=== PATIENT | male | born 1940 | race Caucasian/White ===

== ENCOUNTER 2017-10-07 12:53 | Emergency (ER) | payer OTHER ==
[~2017-10-07] VITALS: Ht 172.7 cm; Wt 115.0 kg
[~2017-10-07 12:53] MED LIST: AVP150 PO; CMDUNK PO; FINA5TAB PO; HYDC25 PO; OXYSRUNK PO; PRAZ5CAP2 PO; PRCUNK PO
[2017-10-07 12:57] VITALS: TEMP 37.6; Ht 172.7 cm; Wt 115.0 kg
[2017-10-07] MEDS ORDERED: SODIUM CHLORIDE 0.9% 1000ML 1,000 ML IV STA (13:27)
[2017-10-07 13:49] LABS: MANUAL MICROSCOPIC REQUIRED? NO; REVIEW REQ? NO; URINE APPEARANCE CLEAR (CLEAR); URINE BILIRUBIN NEG (NEG); URINE COLOR DK YELLOW; URINE EPITHELIAL CELL AUTO 0-5 /lpf (0-5); URINE NITRITE NEG (NEG); URINE SPECIFIC GRAVITY 1.019 (1.000-1.030); UROBILINOGEN NEG (NEG); ZZUR CULT IF INDIC CLEAN CATCH NO
--- NOTE | 2017-10-07 13:49 | DIAGNOSTIC IMAGING REPORT ---
CHEST ONE VIEW PORTABLE CLINICAL HISTORY: 77 years-old Male presenting with fever. TECHNIQUE: Portable upright AP view of the chest was obtained. COMPARISON: 01/07/2009. FINDINGS: Atherosclerosis of the aortic arch. Cardiac silhouette normal in size. Apparent 13 mm nodule projects over the right lung base, which is in a more superior location than expected for a nipple shadow. No other focal infiltrate. No pleural effusion or pneumothorax. Degenerative changes of the thoracic spine. Upper abdomen normal. IMPRESSION: 1. Possible right pulmonary nodule versus nipple shadow. Either PA chest x-ray with nipple markers versus chest CT could be obtained if clinically indicated. 2. No other evidence of acute cardiopulmonary disease. Electronically signed by: Blu Alba M.D. 10/07/2017 1:48 PM Dictated Date/Time: 10/07/2017 1:46 PM
[2017-10-07 14:02] LABS: BASO % 0.1 %; BASO ABS # 0.01 K/uL (0-0.2); COMPLETE YES; EOS % 0.1 %; HEMATOCRIT 39.3 % (42-52); IG% 1.4 %; LYMPH % 7.5 %; LYMPH ABS # 0.53 K/uL (1.2-3.4); MEAN CELL VOLUME 85.1 fL (80-100); MEAN CORPUSCULAR HEMOGLOBIN 28.6 pg (25-34); MEAN CORPUSCULAR HGB CONC 33.6 g/dl (32-36); MEAN PLATELET VOLUME 9.6 fL (7.4-10.4); MONO % 8.3 %; NEUT % 82.6 %; PLATELET COUNT 171 K/uL (130-400); RED BLOOD COUNT 4.62 M/uL (4.7-6.1); WHITE BLOOD COUNT 7.03 K/uL (4.8-10.8)
[2017-10-07 14:10] LABS: INR 1.1 (0.9-1.1)
[2017-10-07 14:19] LABS: ISTAT CREATININE 1.4 mg/dl (0.6-1.3); ISTAT HEMOGLOBIN 13.9 g/dl (14.0-18.0); ISTAT IONIZED CALCIUM 1.12 mmol/l (1.12-1.32)
[2017-10-07 14:20] LABS: ALT/SGPT 88 U/L (12-78); AST/SGOT 34 U/L (15-37); BLOOD UREA NITROGEN 22 mg/dl (7-18); BUN/CREATININE RATIO 15.3 (10-20); CALCIUM 8.4 mg/dl (8.5-10.1); CARBON DIOXIDE 26 mmol/L (21-32); CHLORIDE 102 mmol/L (98-107); CREATININE 1.44 mg/dl (0.60-1.40); GLUCOSE 144 mg/dl (70-99); POTASSIUM 3.7 mmol/L (3.5-5.1); SODIUM 138 mmol/L (136-145)
[2017-10-07 14:24] LABS: ALKALINE PHOSPHATASE 59 U/L (45-117)
[2017-10-07] MEDS ORDERED: LUTE15CA PO (14:24)
[2017-10-07] MEDS ORDERED: NXM/40 PO (14:24)
[2017-10-07] MEDS ORDERED: HYDR12.55 PO (14:24)
[2017-10-07] MEDS ORDERED: B-CO1TAB53 PO (14:24)
[2017-10-07] MEDS ORDERED: ASPI81TA28 PO (14:24)
[2017-10-07] MEDS ORDERED: SODIUM CHLORIDE 0.9% 500ML 500 ML IV STA (15:13)
[2017-10-07 15:29] LABS: LYME DISEASE AB IGG NEG (NEG); LYME DISEASE AB IGM NEG (NEG)
[2017-10-07] MEDS ORDERED: KETOROLAC TROMETHAMINE 30 MG/ML VIAL IV STA (16:06)
[2017-10-07 16:20] VITALS: BP 126/67; PULSE 69; O2SAT 95
--- NOTE | 2017-10-07 17:17 | EMERGENCY ROOM VISIT NOTE ---
History Report prepared by Oskar: Kati Crook Under the Supervision of: Dr. Kali Ivey D.O. First contact with patient: 13:00 Chief Complaint: FEVER Stated Complaint: FEVER, ACHES History of Present Illness The patient is a 77 year old male who presents to the Emergency Room with complaints of a constant fever beginning yesterday. He has been feeling hot and cold. He also reports generalized pain and joint pain. He rates his current pain as a 4/10 in severity. The patient states that he has had similar symptoms 3 times in the past 3 weeks. Each episode lasts for a little over a day and then resolves. He has not checked his temperature today but reports that previously it was 100.7. The patient reports that he has been incontinent of urine and has had increased urinary over the past few days. He has a history of UTIs but states that it has been a long time since he had one. Pt denies change in vision, rhinorrhea, cough, chest pain, shortness of breath, abdominal pain, back pain, nausea, vomiting, diarrhea, dysuria, and melena. He denies any open sores or wounds. He had a tick bite about 1 month ago and denies any personal history of Lyme disease. Source of History: patient Onset: yesterday Position: head (fever) Symptom Intensity: 4/10 Timing: constant Associated Symptoms: + urinary symptoms (Pt notes incontinence and increased frequency), No cough, No chest pain, No SOB, No nausea, No vomiting, No abdominal pain, No back pain, No melena, No diarrhea Note: Pt c/o generalized pain. Pt denies change in vision, rhinorrhea, and dysuria. He denies any open sores or wounds. Review of Systems See HPI for pertinent positives & negatives. A total of 10 systems reviewed and were otherwise negative. Past Medical & Surgical Medical Problems: (1) Cataract (2) Esophageal reflux (3) Hypertension Family History Non-pertinent due to advanced age. Social History Marital Status: Housing Status: lives with significant other Occupation Status: retired Current/Historical Medications Scheduled Aspirin (Aspirin Ec), 81 MG PO QAM B-Complex W/Biotin & Folic Aci (Super B-Complex), 1 TAB PO QAM Esomeprazole Magnesium (Nexium), 40 MG PO QAM Finasteride (Proscar), 5 MG PO DAILY Hydrochlorothiazide (Hydrochlorothiazide), 12.5 MG PO QAM Lutein-Zeaxanthin (Lutein), 1 CAP PO QAM Allergies Coded Allergies: Vancomycin (Verified Allergy, Unknown, ., 10/07/17) LENO Inhibitors (Verified Adverse Reaction, Severe, COUGHING, 10/07/17) Acetaminophen (Verified Adverse Reaction, Intermediate, HALLUCINATIONS, ) Codeine (Verified Adverse Reaction, Intermediate, HALLUCINATIONS, 10/07/17 ) Oxycodone (Verified Adverse Reaction, Intermediate, HALLUCINATIONS, ) Physical Exam Vital Signs Date Time Temp Pulse Resp B/P (MAP) Pulse Ox O2 Delivery O2 Flow Rate FiO2 10/07/17 16:20 69 20 126/67 95 10/07/17 14:56 91 18 109/69 98 Room Air 10/07/17 12:57 37.6 85 18 119/68 95 Room Air Physical Exam GENERAL: Sitting up in bed, disheveled, alert, well appearing, well nourished, no distress, non-toxic EYE EXAM: normal conjunctiva. OROPHARYNX: no exudate, no erythema, lips, buccal mucosa, and tongue normal and mucous membranes are moist NECK: supple, no nuchal rigidity, no adenopathy, non-tender LUNGS: Clear to auscultation. Normal chest wall mechanics HEART: no murmurs, S1 normal and S2 normal ABDOMEN: Old abdominal incision present, abdomen soft, non-tender, normo-active bowel sounds, no masses, no rebound or guarding. BACK: Back is symmetrical on inspection and there is no deformity, no midline tenderness, no CVA tenderness. SKIN: no rashes and no bruising UPPER EXTREMITIES: upper extremities are grossly normal. LOWER EXTREMITIES: No pitting edema. NEURO EXAM: Normal sensorium, cranial nerves II-XII grossly intact, normal speech, no gross weakness of arms, no gross weakness of legs. Ambulates without difficulty. Medical Decision & Procedures ER Provider Diagnostic Interpretation: Radiology results as stated below per my review and the radiologist's interpretation: CHEST ONE VIEW PORTABLE CLINICAL HISTORY: 77 years-old Male presenting with fever. TECHNIQUE: Portable upright AP view of the chest was obtained. COMPARISON: 01/07/2009. FINDINGS: Atherosclerosis of the aortic arch. Cardiac silhouette normal in size. Apparent 13 mm nodule projects over the right lung base, which is in a more superior location than expected for a nipple shadow. No other focal infiltrate. No pleural effusion or pneumothorax. Degenerative changes of the thoracic spine. Upper abdomen normal. IMPRESSION: 1. Possible right pulmonary nodule versus nipple shadow. Either PA chest x-ray with nipple markers versus chest CT could be obtained if clinically indicated. 2. No other evidence of acute cardiopulmonary disease. Electronically signed by: Blu Alba M.D. 10/07/2017 1:48 PM Dictated Date/Time: 10/07/2017 1:46 PM Laboratory Results 10/07/17 13:35 Red Blood Count 4.62, Mean Corpuscular Volume 85.1, Mean Corpuscular Hemoglobin 28.6, Mean Corpuscular Hemoglobin Concent 33.6, Mean Platelet Volume 9.6, Neutrophils (%) (Auto) 82.6, Lymphocytes (%) (Auto) 7.5, Monocytes (%) (Auto) 8.3, Eosinophils (%) (Auto) 0.1, Basophils (%) (Auto) 0.1, Neutrophils # (Auto) 5.80, Lymphocytes # (Auto) 0.53, Monocytes # (Auto) 0.58, Eosinophils # (Auto) 0.01, Basophils # (Auto) 0.01 10/07/17 13:35 Test 10/07/17 13:05 10/07/17 13:35 10/07/17 13:48 10/07/17 14:04 Urine Color DK YELLOW Urine Appearance CLEAR (CLEAR) Urine pH 5.0 (4.5-7.5) Urine Specific [place] 1.019 (1.000-1.030) Urine Protein NEG (NEG) Urine Glucose (UA) NEG (NEG) Urine Ketones NEG (NEG) Urine Occult Blood NEG (NEG) Urine Nitrite NEG (NEG) Urine Bilirubin NEG (NEG) Urine Urobilinogen NEG (NEG) Urine Leukocyte Esterase NEG (NEG) Urine WBC (Auto) 0 /hpf (0-5) Urine RBC (Auto) 0-4 /hpf (0-4) Urine Hyaline Casts (Auto) 1-5 /lpf (0-5) Urine Epithelial Cells (Auto) 0-5 /lpf (0-5) Urine Bacteria (Auto) NEG (NEG) White Blood Count 7.03 K/uL (4.8-10.8) Red Blood Count 4.62 M/uL (4.7-6.1) Hemoglobin 13.2 g/dL (14.0-18.0) Hematocrit 39.3 % (42-52) Mean Corpuscular Volume 85.1 fL (80-100) Mean Corpuscular Hemoglobin 28.6 pg (25-34) Mean Corpuscular Hemoglobin Concent 33.6 g/dl (32-36) Platelet Count 171 K/uL (130-400) Mean Platelet Volume 9.6 fL (7.4-10.4) Neutrophils (%) (Auto) 82.6 % Lymphocytes (%) (Auto) 7.5 % Monocytes (%) (Auto) 8.3 % Eosinophils (%) (Auto) 0.1 % Basophils (%) (Auto) 0.1 % Neutrophils # (Auto) 5.80 K/uL (1.4-6.5) Lymphocytes # (Auto) 0.53 K/uL (1.2-3.4) Monocytes # (Auto) 0.58 K/uL (0.11-0.59) Eosinophils # (Auto) 0.01 K/uL (0-0.5) Basophils # (Auto) 0.01 K/uL (0-0.2) RDW Standard Deviation 42.9 fL (36.4-46.3) RDW Coefficient of Variation 13.9 % (11.5-14.5) Immature Granulocyte % (Auto) 1.4 % Immature Granulocyte # (Auto) 0.10 K/uL (0.00-0.02) Prothrombin Time 12.0 SECONDS (9.0-12.0) Prothromb Time International Ratio 1.1 (0.9-1.1) Est Creatinine Clear Calc Drug Dose 52.9 ml/min Estimated GFR () 53.9 Estimated GFR (Non- 46.5 BUN/Creatinine Ratio 15.3 (10-20) Calcium Level 8.4 mg/dl (8.5-10.1) Total Bilirubin 1.7 mg/dl (0.2-1) Direct Bilirubin 0.4 mg/dl (0-0.2) Aspartate Amino Transf (AST/SGOT) 34 U/L (15-37) Alanine Aminotransferase (ALT/SGPT) 88 U/L (12-78) Alkaline Phosphatase 59 U/L (45-117) Total Creatine Kinase 37 U/L (39-308) Troponin I < 0.015 ng/ml (0-0.045) Total Protein 6.6 gm/dl (6.4-8.2) Albumin 3.2 gm/dl (3.4-5.0) Lyme Disease IgG Antibody NEG (NEG) Lyme Disease IgM Antibody NEG (NEG) Bedside Lactic Acid Venous 2.19 mmol/L (0.90-1.70) Bedside Hemoglobin 13.9 g/dl (14.0-18.0) Bedside Hematocrit 41 % (42-52) Bedside Sodium 139 mEq/L (135-144) Bedside Potassium 3.7 mEq/L (3.3-5.0) Bedside Chloride 98 mEq/L (101-112) Bedside Total CO2 26 mEq/l (24-31) Anion Gap 20.0 mmol/L (16-25) Bedside Blood Urea Nitrogen 22 mg/dl (7-18) Bedside Creatinine 1.4 mg/dl (0.6-1.3) Bedside Glucose (other) 144 mg/dl (70-99) Bedside Ionized Calcium (Anayeli) 1.12 mmol/l (1.12-1.32) Test 10/07/17 14:50 10/07/17 15:29 Influenza Type A Antigen Neg for Influ A (NEG) Influenza Type B Antigen Neg for Influ B (NEG) Laboratory results per my review. Medications Administered Medications (Trade) Dose Ordered Sig/Elijah Route Start Time Stop Time Status Last Admin Dose Admin Sodium Chloride 1,000 ml @ 999 mls/hr Q1H1M STAT IV 10/07/17 13:27 10/07/17 14:27 DC 10/07/17 13:27 999 MLS/HR Sodium Chloride 500 ml @ 999 mls/hr Q31M STAT IV 10/07/17 15:13 10/07/17 15:43 DC 10/07/17 15:13 999 MLS/HR Ketorolac Tromethamine (Toradol Inj) 15 mg NOW STAT IV 10/07/17 16:06 10/07/17 16:07 DC 10/07/17 16:12 15 MG ECG Indication: other Rate (beats per minute): 82 Rhythm: normal sinus Findings: no ectopy, other (normal axis) ED Course ED COURSE: Vital signs were reviewed and showed normal vitals. The patients medical record was reviewed The above diagnostic studies were performed and reviewed. ED treatments and interventions as stated above. 1300: The patient was evaluated in room B4B. A complete history and physical examination was performed. 1327: NSS 1000 ml @ 999 mls/hr IV 1404: Upon reevaluation the patient is doing well. 1446: I updated the patient on his results. 1513: NSS 500 ml @ 999 mls/hr IV 1525: The patient is resting comfortably. 1607: Upon reevaluation, the patient is feeling better. He is refusing repeat blood work. I discussed my findings with the patient and he understands and agrees with the treatment plan. Case management will set up a follow-up appointment with the patient's PCP. Based on the patients age, coexisting illnesses, exam and lab findings the decision to treat as an outpatient was made. The patient remained stable while under my care. The patient appeared well at the time of discharge. 1606: Toradol 15 mg IV Medical Decision Differential Diagnosis includes but is not limited to dehydration, stroke, anemia, hypoglycemia, hyponatremia, hypernatremia, urinary tract infection, pneumonia, bronchitis, sepsis, gastroenteritis, additional abdominal pathology, metabolic abnormalities and infections. Patient is a 77-year-old male who presents to ER for not feeling well which started last night. He does admit to chills and diffuse myalgias. No recorded fevers. CBC shows no significant leukocytosis. BMP was unremarkable. Glucose was slightly elevated. Lactate was 2.1. T bili was slightly elevated at 1.7. No previous to compare to. No abdominal pain. Troponin was negative. Recommended repeating lactate the patient declined. Influenza was negative. Lyme was negative. Chest x-ray unremarkable. UA shows no signs of infection. Patient was given 1.5 L normal saline. He was also given Toradol. He did feel better. His updated at bedside. Vitals were stable and unremarkable. He was discharged follow-up with his PCP. Set up an appointment tomorrow for him at midday. Discussed with Pt concerning signs and symptoms to watch out for. Pt was instructed to follow up with their PCP and discussed with the patient their option to return to the ED at anytime for persistent or worsening symptoms. The appropriate anticipatory guidance and out-patient management, including indications for return to the emergency department, were explained at length to the patient and understood. Medication Reconcilliation Current Medication List: was personally reviewed by me Blood Pressure Screening Patient's blood pressure: Normal blood pressure Impression Primary Impression: Myalgia Additional Impression: Weak Scribe Attestation The scribe's documentation has been prepared under my direction and personally reviewed by me in its entirety. I confirm that the note above accurately reflects all work, treatment, procedures, and medical decision making performed by me. Departure Information Dispostion Home / Self-Care Referrals Ange Acosta M.D. (PCP) Forms HOME CARE DOCUMENTATION FORM, IMPORTANT VISIT INFORMATION Patient Instructions My [facility] Additional Instructions Please follow up with your primary care doctor with in the next 24 hours. Any worsening of your symptoms, please return to the ED immediately. This includes any fevers greater than 100.4, worsening pain, chest pain, shortness breath, persistent nausea, vomiting, unable to eat or drink, or any other concerning signs or symptoms from your standpoint. Please take Motrin or ibuprofen as needed for pain. Problem Qualifiers
== END 2017-10-07 16:21 | disposition home or self-care (01) ==
LOC: C.EDB 12:54
DX: M79.1 Myalgia (principal); R53.1 Weakness; Z87.440 Personal history of urinary (tract) infections; K21.9 Gastro-esophageal reflux disease without esophagitis; I10 Essential (primary) hypertension; H26.9 Unspecified cataract; Z79.82 Long term (current) use of aspirin; Z79.899 Other long term (current) drug therapy

== ENCOUNTER 2020-08-01 11:15 | Inpatient (IN) ==
--- OUTSIDE RECORDS SUMMARY | 2020-08-01 11:17 | External Medical Summary | Continuity of Care Document ---
:1940 Author Name Anca García Address Unavailable Unavailable , Care Team Providers Name Role Phone Corazon García Unavailable [email or web address] Active medical history not documented Allergies and Adverse Reactions Allergy history not documented Medications Medications not documented Procedures Procedures not documented Immunizations Immunizations not documented Plan of Treatment Planned Observations Planned Goals not documented Results No Known Results Results not documented
--- OUTSIDE RECORDS SUMMARY | 2020-08-01 11:18 | External Medical Summary | Continuity of Care Document ---
:1940 Author Name Anca García Address Unavailable Unavailable , Care Team Providers Name Role Phone Corazon García Unavailable [email or web address] Active medical history not documented Allergies and Adverse Reactions Allergy history not documented Medications Medications not documented Procedures Procedures not documented Immunizations Immunizations not documented Plan of Treatment Planned Observations Planned Goals not documented Results No Known Results Results not documented
[2020-08-01] MEDS ORDERED: SODIUM CHLORIDE 0.9% 1000ML 500 ML IV ONE ×2 (11:53→13:14)
[2020-08-01 12:26] LABS: Basophils # (auto) 0.02 K/uL (0-0.2); Basophils % (auto) 0.2 %; Eosinophils # (auto) 0.17 K/uL (0-0.5); Eosinophils % (auto) 2.1 %; Hematocrit (blood only) 42.4 % (42-52); Hemoglobin 14.3 g/dL (14.0-18.0); Immature Granulocytes # (auto) 0.02 K/uL (0.00-0.02); Immature Granulocytes % (auto) 0.2 %; Lymphocytes % (auto) 18.7 %; Mean Corpuscular Hemoglobin 28.8 pg (25-34); Mean Corpuscular Hgb Conc 33.7 g/dL (32-36); Mean Corpuscular Volume 85.3 fL (80-100); Mean Platelet Volume 10.4 fL (7.4-10.4); Monocytes # (auto) 0.58 K/uL (0.11-0.59); Monocytes % (auto) 7.2 %; Neutrophils # (auto) 5.72 K/uL (1.4-6.5); Neutrophils % (auto) 71.6 %; Platelet Count 155 K/uL (130-400); RDW Coefficient of Variation 13.6 % (11.5-14.5); RDW Standard Deviation 42.6 fL (36.4-46.3); Red Blood Count 4.97 M/uL (4.7-6.1); White Blood Count 8.01 K/uL (4.8-10.8)
[2020-08-01 12:37] LABS: Partial Thromboplastin Ratio 0.9; Partial Thromboplastin Time 25.6 Seconds (21.0-31.0)
[2020-08-01 12:41] LABS: Alanine Aminotransferase 46 U/L (12-78); Albumin Level 3.4 gm/dl (3.4-5.0); Aspartate Aminotransferase 20 U/L (15-37); BUN Creatinine Ratio 18.7 (10-20); Blood Urea Nitrogen 26 mg/dl (7-18); Calcium 8.7 mg/dl (8.5-10.1); Carbon Dioxide 27 mmol/L (21-32); Chloride 107 mmol/L (98-107); Creatinine Clr Calc Pharmacy 51.7 ml/min; Est GFR (African American) 54.5; Glucose 123 mg/dl (70-99); Lipase 119 U/L (73-393); Potassium 3.8 mmol/L (3.5-5.1); Sodium 142 mmol/L (136-145)
--- NOTE | 2020-08-01 12:43 | XRay Report ---
SINGLE VIEW CHEST CLINICAL HISTORY: Atypical chest pain. FINDINGS: 2 AP, portable, upright chest radiographs are compared to study dated 10/07/2017 and correl ated with chest CT dated 07/15/2008. The examination is degraded by portable technique and patient rota tion. The heart is top normal for projection noting mild atherosclerotic calcification of the thoraci c aorta. A 10 mm pulmonary nodule in the right lower lobe is unchanged. There is no airspace consolid ation or large pleural effusion. Atelectasis is noted at the left lung base. No pneumothorax is seen. The bony thorax is grossly intact. IMPRESSION: 1. No acute cardiopulmonary abnormality. 2. A 10 mm right lower lobe pulmonary nodule is similar in appearance to previous.. ACT 112: Negative or not required by law. Electronically signed by: Gonzalez Logan M.D. 08/01/2020 12:42 PM
[2020-08-01 12:46] LABS: Albumin Globulin Ratio 0.9 (0.9-2); Alkaline Phosphatase 50 U/L (45-117); Bilirubin,Total 1.3 mg/dl (0.2-1); Globulin 3.6 gm/dl (2.5-4.0); Troponin I < 0.015 ng/ml (0-0.045)
[2020-08-01] MEDS ORDERED: OPTIRAY 320 125ml IV ONE (13:22)
--- NOTE | 2020-08-01 13:43 | CT Scan Report ---
CT head/brain wo con CLINICAL HISTORY: Stroke evaluation DIZZINESS, LIGHTHEADEDNESS. COMPARISON STUDY: None TECHNIQUE: Axial CT of the brain is performed from the vertex to the skull base. IV contrast was not administered for this examination. A dose lowering technique was utilized adhering to the principles of ALARA. CT DOSE: FINDINGS: No intra or extra-axial mass lesions are visualized. There is no CT evidence of acute cortical infarc tion. There is no evidence of midline shift. There is no acute hemorrhage. No calvarial fractures ar e visualized. There are minimal white matter hypodensities likely on a small vessel basis. There is no evidence of pathologic ventricular dilatation. There is no evidence of acute sinusitis IMPRESSION: No acute intracranial findings ACT 112: Negative or not required by law. Electronically signed by: Deep Contreras M.D. 08/01/2020 1:42 PM
--- NOTE | 2020-08-01 13:45 | CT Scan Report ---
CT angio neck with con CLINICAL HISTORY: Stroke evaluation LIGHTHEADEDNESS, DIZZINESS. COMPARISON STUDY: No previous studies for comparison. TECHNIQUE: CT angiography was performed from the aortic arch to the skull base. MIP imaging was perfo rmed. The patient was scanned in a dynamic helical fashion during intravenous administration of 120 c c of Optiray 320. A dose lowering technique was utilized adhering to the principles of ALARA. CT DOSE: Technique: CT angiogram of the carotid and vertebral arteries was obtained using intravenous contrast and 3-D reconstruction. NASCET criteria was utilized. Findings: The right carotid revealed no evidence of aneurysm and no evidence of dissection. There is no evidenc e of hemodynamic significant stenosis. There is calcific plaque at the level the left carotid bulb. There is no evidence of hemodynamically significant carotid stenosis. There is no evidence of hemodynamically significant vertebral stenosis. There is no evidence of verte bral dissection. IMPRESSION: No evidence of hemodynamically significant carotid or vertebral artery stenosis. No evidence of disse ction. ACT 112: Negative or not required by law. Electronically signed by: Deep Contreras M.D. 08/01/2020 1:44 PM
--- NOTE | 2020-08-01 14:02 | CT Scan Report ---
HEAD CTA HISTORY: Dizziness. Stroke evaluation TECHNIQUE: Multiaxial CT images of the head were performed following the intravenous administration o f contrast to evaluate the major cerebral vessels. Maximum intensity projection images were also obta ined. A dose lowering technique was utilized adhering to the principles of ALARA. COMPARISON: None. FINDINGS: There is no mass, hematoma, midline shift, or acute infarct. Visualized intracranial manager intern al carotid arteries, distal vertebral arteries, and basilar artery are widely patent. There is no sig nificant stenosis, occlusion, or aneurysm seen within the bilateral ACAs, MCAs, or storekeeper helper. The major du ral venous sinuses are widely patent. IMPRESSION: No significant stenosis, occlusion, or aneurysm within the teller of Estevez. ACT 112: Negative or not required by law. Electronically signed by: Tl Deluna M.D. 08/01/2020 2:00 PM
--- NOTE | 2020-08-01 14:25 | History & Physical Report ---
Date of Service August 01, 2020 Assessment & Plan (1) Visual changes: (2) Stroke-like symptoms: This is a 79yo M with a PMH of HTN, BPH, CKD III and other medical problems listed below who presents with visual changes and lightheadedness x 4 days. -Has been experiencing vertigo, lightheadedness, left peripheral visual field changes over the past few days as well as chest tightness and presyncope -Ddx: TIA/CVA vs BPPV vs orthostatic hypotension vs cardiac arrhythmia -No focal neurological deficits or lab abnormalities. EKG with sinus bradycardia at 49 bpm -CT head without acute changes, CTA head and neck without significant stenosis, occlusion, or aneurysm within the [place]. No evidence of carotid or vertebral artery stenosis, no evidence of dissection -Pending studies: MRI brain with/without contrast for further evaluation of vertigo and left visual changes as well as 2D echo with bubble study -Orthostatic vitals, continue aspirin, neuro checks, PT, OT, speech therapy evaluations. Consult neurology (3) History of paroxysmal supraventricular tachycardia: (4) Sinus bradycardia: EKG with sinus bradycardia at 49. Chart review of clinic vital signs show this is a chronic issue -In setting of acute fatigue, intermittent chest tightness, a few episodes of presyncope and lightheadedness -Was seen by Dr. Rangel in May 2020 for findings of asymptomatic paroxysmal supraventricular tachycardia with monitor revealing 57 episodes. Not placed on beta stephanie due to chronic sinus bradycardia -Monitor on telemetry, trend troponin, obtaining 2D echo, cardiology consult (5) Chest tightness: Intermittent episodes of chest tightness over the past 4 days, did not seem to correlate with lightheadedness or presyncope -Initial EKG without any acute ischemic changes. Repeat EKG pending now. Initial troponin negative. Continue trending troponin (6) CKD (chronic kidney disease), stage III: At baseline with creatinine ~1.4. Monitor with daily BMP (7) Hypertension: BP 139/65. Orthostatic vitals pending. Plan to continue losartan and hctz (8) BPH (benign prostatic hyperplasia): Current home regimen includes finasteride and doxazosin. Concerned medication contributing to orthostasis DVT Ppx: SQ heparin Code status: FULL PCP: Johntersagrario Dispo: Admitted to [facility]. Discharge planning ordered. Patient seen in collaboration with Dr. Hazel. Please see addendum. History of Present Illness Chief Complaint: visual changes, lightheadedness Primary Care Provider: Walter Arizmendi MD This is a 79yo M with a PMH of HTN, BPH, CKD III and other medical problems listed below who presents with visual changes and lightheadedness x 4 days. Patient leaned over during the weekend and had sudden onset episode of the room spinning. Continue to feel fatigued with lightheadedness and presyncope that day, but vertigo did not return. Also endorsing intermittent chest tightness but did not seem to correlate with presyncopal episode. The next day, patient had visual changes in peripheral field of left eye that resolved later that day and have not returned. Continues to feel fatigued, lightheaded, with intermittent episodes of presyncope. Does not seem to be correlated with exertion but most episodes occur with some type of positional change. Also endorsing chest tightness spreading across chest that is nonradiating and nonexertional. Associated with mild shortness of breath but no nausea or vomiting. No weakness of extremities or difficulty with ambulation. No palpitations noted. Patient denies any personal history of heart disease or stroke. No history of migraine headache or vertigo in the past. states that patient has been working on a extensive [place] project since April and usually works for the entire day without issue. Has noticed a significant decline in energy level over the past 4 days. Patient is taking doxazosin and finasteride for BPH as well as hydrochlorothiazide and losartan for blood pressure. Denies any fever, chills, headache, cough, palpitations, wheezing, nausea, vomiting, abdominal pain, dysuria, diarrhea or constipation. Allergies Allergy/AdvReac Type Severity Reaction Status Date / Time vancomycin Allergy Severe Hives Verified 08/01/20 15:11 LENO Inhibitors AdvReac Severe COUGHING Verified 08/01/20 15:11 acetaminophen AdvReac Intermediate HALLUCINATI Verified 08/01/20 15:11 ONS codeine AdvReac Intermediate HALLUCINATI Verified 08/01/20 15:11 ONS oxycodone AdvReac Intermediate HALLUCINATI Verified 08/01/20 15:11 ONS tolterodine [From Detrol] AdvReac constipation, Verified 08/01/20 15:13 blurred vision, urinary retention Home Medications Home Medications Medication Instructions Recorded Confirmed Type aspirin [Aspir-81] 81 mg PO DAILY 08/01/20 08/01/20 History cyanocobalamin (vitamin B-12) 1,000 mcg PO DAILY 08/01/20 08/01/20 History doxazosin [Cardura] 8 mg PO DAILY 08/01/20 08/01/20 History finasteride 5 mg PO DAILY 08/01/20 08/01/20 History fluticasone propionate [Flonase 2 spray INTRANASAL DAILY 08/01/20 08/01/20 History Allergy Relief] hydrochlorothiazide 25 mg PO DAILY 08/01/20 08/01/20 History losartan [Cozaar] 100 mg PO DAILY 08/01/20 08/01/20 History metronidazole 1 applic TOPICAL DAILY PRN 08/01/20 08/01/20 History Past Med/Surg History Medical History (Updated 08/01/20 @ 16:18 by Ramón Mcdonald MD) BPH (benign prostatic hyperplasia) Cataract CKD (chronic kidney disease), stage III Esophageal reflux History of paroxysmal supraventricular tachycardia Hypertension Surgical History History of cholecystectomy Family History Other Diabetes Heart disease Social History Smoking Status: Former smoker Hx Alcohol Use: Yes Alcohol type: beer Hx Substance Use: No Preferred Language: Persian Communication Ability: Effective Instructional Writer Required: No Beliefs That Will Affect Care: None Current Living Situation: Spouse Other Information That Helps Us Care for You: No Feels Safe at Home: Yes Safety Concerns: Feels Safe At This Time Assistive Devices: Denture - Upper Review of Systems Review of Systems: At least ten systems reviewed and negative except as noted in the HPI. Physical Exam Physical Exam: General Appearance: WD/WN, vitals as above, NAD, sitting up in bed, pleasant, conversing easily Head: normocephalic, atraumatic Eyes: normal inspection, PERRL, conjunctivae normal, anicteric sclerae, no nystagmus ENT: external ear and nose normal, oropharynx normal Neck: normal visual inspection, trachea midline, no thyromegaly Respiratory: normal respiratory effort, lungs clear to auscultation, no wheeze, rales, rhonchi. No accessory muscle use Cardiovascular: bradycardic rate, regular rhythm, no murmur appreciated, normal peripheral pulses, no BLE edema. Vessels: no JVD Chest: normal inspection of chest Abdomen/GI: normal bowel sounds, soft, nontender, no hepatosplenomegaly Extremities/Musculoskeletal: no cyanosis or clubbing, extremities motor strength 5/5 Neurologic: PERRL, EOMI, accommodation nl, no face palsy, no dysarthria, CN's II-XI intact bilaterally and moves all extremities Psychiatric: A+Ox3, euthymic affect Skin: no rashes, normal color, warm/dry Results & Data Results & Data ([facility]) Vital Signs (Past 12 Hours) Vital Signs Temp Pulse Resp BP Pulse Ox 08/01/20 13:50 44 L 18 139/65 08/01/20 11:18 36.6 C 51 L 18 131/72 95 Laboratory Results Short CBC 08/01/20 08/01/20 08/01/20 Range/Units 12:10 12:10 12:10 WBC 8.01 (4.8-10.8) K/uL RBC 4.97 (4.7-6.1) M/uL Hgb 14.3 (14.0-18.0) g/dL Hct 42.4 (42-52) % MCV 85.3 (80-100) fL MCH 28.8 (25-34) pg MCHC 33.7 (32-36) g/dL RDW Std Deviation 42.6 (36.4-46.3) fL RDW Coeff of Matheus 13.6 (11.5-14.5) % Plt Count 155 (130-400) K/uL MPV 10.4 (7.4-10.4) fL Immature Gran % (Auto) 0.2 % Neut % (Auto) 71.6 % Lymph % (Auto) 18.7 % [place] % (Auto) 7.2 % Eos % (Auto) 2.1 % Baso % (Auto) 0.2 % Neut # (Auto) 5.72 (1.4-6.5) K/uL Lymph # (Auto) 1.50 (1.2-3.4) K/uL [place] # (Auto) 0.58 (0.11-0.59) K/uL Eos # (Auto) 0.17 (0-0.5) K/uL Baso # (Auto) 0.02 (0-0.2) K/uL Immature Gran # (Auto) 0.02 (0.00-0.02) K/uL PT 11.0 (9.0-12.0) Seconds INR 1.0 (0.9-1.1) APTT 25.6 (21.0-31.0) Seconds PTT Ratio 0.9 Sodium 142 (136-145) mmol/L Potassium 3.8 (3.5-5.1) mmol/L Chloride 107 (98-107) mmol/L Carbon Dioxide 27 (21-32) mmol/L Anion Gap 9.0 (3-11) BUN 26 H (7-18) mg/dl Creatinine 1.41 H (0.6-1.4) mg/dl Est Cr Clr Drug Dosing 51.7 ml/min Est GFR ( Amer) 54.5 Est GFR (Non-Af Amer) 47.0 BUN/Creatinine Ratio 18.7 (10-20) Glucose 123 H (70-99) mg/dl Calcium 8.7 (8.5-10.1) mg/dl Total Bilirubin 1.3 H (0.2-1) mg/dl AST 20 (15-37) U/L ALT 46 (12-78) U/L Alkaline Phosphatase 50 (45-117) U/L Troponin I < 0.015 (0-0.045) ng/ml Total Protein 7.0 (6.4-8.2) gm/dl Albumin 3.4 (3.4-5.0) gm/dl Globulin 3.6 (2.5-4.0) gm/dl Albumin/Globulin Ratio 0.9 (0.9-2) Lipase 119 (73-393) U/L BMP 08/01/20 12:10 Sodium 142 Potassium 3.8 Chloride 107 Carbon Dioxide 27 BUN 26 H Creatinine 1.41 H Glucose 123 H Calcium 8.7 Cardiac Enzymes 08/01/20 Range/Units 12:10 Troponin I < 0.015 (0-0.045) ng/ml Liver Function 08/01/20 Range/Units 12:10 Total Bilirubin 1.3 H (0.2-1) mg/dl AST 20 (15-37) U/L ALT 46 (12-78) U/L Alkaline Phosphatase 50 (45-117) U/L Albumin 3.4 (3.4-5.0) gm/dl Diagnostic Findings Head CT: IMPRESSION: No acute intracranial findings Head CTA: IMPRESSION: No significant stenosis, occlusion, or aneurysm within the [place]. Neck CTA: IMPRESSION: No evidence of hemodynamically significant carotid or vertebral artery stenosis. No evidence of dissection. CXR: IMPRESSION: 1. No acute cardiopulmonary abnormality. 2. A 10 mm right lower lobe pulmonary nodule is similar in appearance to previous. ECG Rhythm: sinus bradycardia Code Status & VTE Plan VTE Prophylaxis Plan VTE Prophylaxis will be ordered: Yes Supervising Physician Co-Signing Physician Notes I saw this patient with the physician fish hatchery assistant, I participated in the history, physical, review of systems, and physical exam. I reviewed the medications with the patient and the physician fish hatchery assistant and helped reconcile the medications. I helped take a detailed family and social history as well. I formulated the assessment and plan personally with the physician fish hatchery assistant and went over it with the patient. Physical Exam Gen-AAO x 3, NAD, Afebrile Head-NCAT, EOMI, PERRLA, Anicteric Sclera, No Posterior Pharyngeal Erythema Neck-Supple, No JVD, No Thyromegaly, No Masses, No LAD, No Bruits Lungs-Clear to Auscultation Bilaterally, No Rales, No Rhonchi, No Wheezing, No Crepitus Chest-bradycardic, no S4, +S1, +S2, No S3, No Murmurs, No Rubs, No Gallops, No Ectopy Abdomen-Soft, Bowel Sounds Present, Non Tender, Non Distended, No Hepatomegaly, No Splenomegaly, No Palpable Masses, No Rebound, No Rigidity, No Guarding Musculoskeletal-Full Range of Motion Bilaterally, No CVAT Extremities-No Cyanosis, No Clubbing, No Edema Nuero-Cranial Nerves II-XII grossly intact, Motor WNL, DTRs WNL, Strength WNL, Non Focal Psych-Normal Mood
--- NOTE | 2020-08-01 15:23 | Cardiology Consultation ---
Date of Consultation August 01, 2020 Assessment & Plan (1) Pre-syncope: Patient presents with symptoms suspicious for symptomatic bradycardia. Familial history of need for pacemaker/sick sinus syndrome. No prior history of structural heart disease Agree with neurologic assessment as ordered given transient left visual changes. Initial cerebral and carotid CT angiography without obstruction Would continue aspirin and obtain MRI as ordered Keep n.p.o. after midnight as patient may warrant pacemaker as management Will review studies as available echocardiogram pending (2) Symptomatic bradycardia: (3) Hypertension: History of Present Illness Reason for Consultation: Symptomatic bradycardia Requesting Physician: Jacinta Rivas History of Present Illness This patient is a 79-year-old male active patino presents now noting intermittent dizzy episodes for several weeks with several profound episodes over the past weekend. Symptoms not specifically in relationship with exertion. 2 episodes of near syncope one at rest. His underlying history is notable for hypertension and past documented paroxysmal atrial tachycardia. Patient was seen for complaints of dizziness as an outpatient and referred for ER evaluation today. Monitor and EKGs reflect intermittent profound sinus bradycardia with sinus rates 30s and 40s in association with symptoms. Patient notes occasional visual changes notes no headache issues. Visual changes and one episode described as a jagged peripheral field narrowing of the left eye Notes no chest pains but has felt fullness in the chest several times at rest not with exertion. Tachypalpitations syncope or near syncope other than as described. No recent fevers chills or infections. No bleeding difficulties. Has been treated for Lyme disease in the remote past no distinct recent tick exposure though patient active in hunting and hiking, farm and camp Appetite is good notes no distinct sleep disruption. No bleeding difficulties melena medication dysuria hematuria. Blood pressure has been recently well controlled. No evidence of hyperlipidemia with excellent lipids off therapy Initial evaluation includes CTA head and neck without obstruction or evidence of cerebral infarct Family history is positive for mother requiring pacemaker Allergies Allergy/AdvReac Type Severity Reaction Status Date / Time vancomycin Allergy Severe Hives Verified 08/01/20 15:11 LENO Inhibitors AdvReac Severe COUGHING Verified 08/01/20 15:11 acetaminophen AdvReac Intermediate HALLUCINATI Verified 08/01/20 15:11 ONS codeine AdvReac Intermediate HALLUCINATI Verified 08/01/20 15:11 ONS oxycodone AdvReac Intermediate HALLUCINATI Verified 08/01/20 15:11 ONS tolterodine [From Detrol] AdvReac constipation, Verified 08/01/20 15:13 blurred vision, urinary retention Home Medications Home Medications Medication Instructions Recorded Confirmed Type aspirin [Aspir-81] 81 mg PO DAILY 08/01/20 08/01/20 History cyanocobalamin (vitamin B-12) 1,000 mcg PO DAILY 08/01/20 08/01/20 History doxazosin [Cardura] 8 mg PO DAILY 08/01/20 08/01/20 History finasteride 5 mg PO DAILY 08/01/20 08/01/20 History fluticasone propionate [Flonase 2 spray INTRANASAL DAILY 08/01/20 08/01/20 History Allergy Relief] hydrochlorothiazide 25 mg PO DAILY 08/01/20 08/01/20 History losartan [Cozaar] 100 mg PO DAILY 08/01/20 08/01/20 History metronidazole 1 applic TOPICAL DAILY PRN 08/01/20 08/01/20 History Patient History Medical History (Updated 08/01/20 @ 16:18 by Ramón Mcdonald MD) BPH (benign prostatic hyperplasia) Cataract CKD (chronic kidney disease), stage III Esophageal reflux History of paroxysmal supraventricular tachycardia Hypertension Surgical History History of cholecystectomy Family History Other Diabetes Heart disease Social History Smoking Status: Former smoker Hx Alcohol Use: Yes Alcohol type: beer Hx Substance Use: No Preferred Language: Upper Sorbian Communication Ability: Effective Work Car Operator Required: No Beliefs That Will Affect Care: None Current Living Situation: Spouse Other Information That Helps Us Care for You: No Feels Safe at Home: Yes Safety Concerns: Feels Safe At This Time Assistive Devices: Denture - Upper Review of Systems Review of Systems: All systems reviewed & are unremarkable except as noted in HPI & below Physical Exam Constitutional: WD/WN, vitals as above + obese Eyes: PERRL, conjunctivae normal, anicteric sclerae ENMT: external ear and nose normal, oropharynx normal Neck: trachea midline, no thyromegaly Respiratory: normal respiratory effort, lungs clear to auscultation Cardiovascular: Rate/Rhythm: regular rate and regular rhythm Heart Sounds: normal S1 and normal S2; no gallop and no murmur Palpation: normal PMI Vessels: normal carotid upstroke and radial pulses present; no JVD and no carotid bruit Extremities: no edema Gastrointestinal (Abdomen): normal bowel sounds, soft, nontender, no hepatosplenomegaly Musculoskeletal: no cyanosis or clubbing, extremities motor strength 5/5 Skin: no rashes, warm and dry Neurologic: PERRL, EOMI, accommodation nl, no face palsy, no dysarthria Psychiatric: A+Ox3, euthymic affect Results & Data ([facility]) Vital Signs (Past 12 Hours) Vital Signs Temp Pulse Resp BP Pulse Ox 08/01/20 13:50 44 L 18 139/65 08/01/20 11:18 36.6 C 51 L 18 131/72 95 Laboratory Results Laboratory Results - last 24 hr 08/01/20 08/01/20 08/01/20 12:10 12:10 12:10 WBC 8.01 RBC 4.97 Hgb 14.3 Hct 42.4 MCV 85.3 MCH 28.8 MCHC 33.7 RDW Std Deviation 42.6 RDW Coeff of Matheus 13.6 Plt Count 155 MPV 10.4 Immature Gran % (Auto) 0.2 Neut % (Auto) 71.6 Lymph % (Auto) 18.7 [place] % (Auto) 7.2 Eos % (Auto) 2.1 Baso % (Auto) 0.2 Neut # (Auto) 5.72 Lymph # (Auto) 1.50 [place] # (Auto) 0.58 Eos # (Auto) 0.17 Baso # (Auto) 0.02 Immature Gran # (Auto) 0.02 PT 11.0 INR 1.0 APTT 25.6 PTT Ratio 0.9 Sodium 142 Potassium 3.8 Chloride 107 Carbon Dioxide 27 Anion Gap 9.0 BUN 26 H Creatinine 1.41 H Est Cr Clr Drug Dosing 51.7 Est GFR ( Amer) 54.5 Est GFR (Non-Af Amer) 47.0 BUN/Creatinine Ratio 18.7 Glucose 123 H Calcium 8.7 Total Bilirubin 1.3 H AST 20 ALT 46 Alkaline Phosphatase 50 Troponin I < 0.015 Total Protein 7.0 Albumin 3.4 Globulin 3.6 Albumin/Globulin Ratio 0.9 Lipase 119 Diagnostic Findings Laboratory studies, outpatient 08/01/2020 TSH 1.53 ECG Additional Comments: 01-AUG-2020 11:29:40 [facility]-EDSTAT ROUTINE RETRIEVAL Sinus bradycardia Otherwise normal ECG When compared with ECG of 07-OCT-2017 13:19, Vent. rate has decreased BY 33 BPM Nonspecific T wave abnormality no longer evident in Lateral leads
--- NOTE | 2020-08-01 15:42 | Emergency Department Note ---
History of Present Illness General Chief complaint: Dizziness Stated complaint: LIGHTHEADED/DIZZY Time Seen by Provider: 08/01/20 11:45 Source: patient, RN notes reviewed and old records reviewed Mode of arrival: ambulatory Limitations: no limitations History of Present Illness Provider complaint: dizziness Onset (ago): day(s) 4 Location: head Radiation: non-radiation Current Pain Intensity: 0 Relieved By: + immobilization Exacerbated By: + movement Associated symptoms: + denies other symptoms; no chest pain, no diaphoresis, no fever/chills, no headaches, no loss of appetite, no malaise, no nausea/vomiting, no rash, no shortness of breath and no weakness Treatments prior to arrival: none This is a 79-year-old male who presents the emergency department complaining of dizziness that has been present for the past 4 days. The patient reports he bent over on Friday and has been dizzy ever since. The patient reports dizziness seems to get worse with movement however it tends to get better after waiting a certain amount of time. He was sent in by his primary care physician's office. Home Medications Home Medications Medication Instructions Recorded Confirmed Type aspirin [Aspir-81] 81 mg PO DAILY 08/01/20 08/01/20 History cyanocobalamin (vitamin B-12) 1,000 mcg PO DAILY 08/01/20 08/01/20 History doxazosin [Cardura] 8 mg PO DAILY 08/01/20 08/01/20 History finasteride 5 mg PO DAILY 08/01/20 08/01/20 History fluticasone propionate [Flonase 2 spray INTRANASAL DAILY 08/01/20 08/01/20 History Allergy Relief] hydrochlorothiazide 25 mg PO DAILY 08/01/20 08/01/20 History losartan [Cozaar] 100 mg PO DAILY 08/01/20 08/01/20 History metronidazole 1 applic TOPICAL DAILY PRN 08/01/20 08/01/20 History Allergies Allergy/AdvReac Type Severity Reaction Status Date / Time vancomycin Allergy Severe Hives Verified 08/01/20 15:11 LENO Inhibitors AdvReac Severe COUGHING Verified 08/01/20 15:11 acetaminophen AdvReac Intermediate HALLUCINATI Verified 08/01/20 15:11 ONS codeine AdvReac Intermediate HALLUCINATI Verified 08/01/20 15:11 ONS oxycodone AdvReac Intermediate HALLUCINATI Verified 08/01/20 15:11 ONS tolterodine [From Detrol] AdvReac constipation, Verified 08/01/20 15:13 blurred vision, urinary retention Past Med/Surg History Medical History BPH (benign prostatic hyperplasia) Cataract CKD (chronic kidney disease), stage III Esophageal reflux Hypertension Surgical History History of cholecystectomy Family History Other Diabetes Heart disease Social History Smoking Status: Former smoker Hx Alcohol Use: Yes Alcohol type: beer Hx Substance Use: No Preferred Language: Slovenian Communication Ability: Effective Anesthesiologist Attending Required: No Beliefs That Will Affect Care: None Current Living Situation: Spouse Other Information That Helps Us Care for You: No Feels Safe at Home: Yes Safety Concerns: Feels Safe At This Time Assistive Devices: Denture - Upper Review of Systems A total of 10 systems reviewed and were otherwise negative Physical Exam Vital Signs Vital Signs - 24 hr 08/01/20 11:18 08/01/20 13:50 Temperature 36.6 C Temperature Source Oral Pulse Rate 51 L 44 L Respiratory Rate 18 18 Respiratory Effort / Characteristics Non-Labored Spontaneous Respiratory Depth Normal Blood Pressure 131/72 139/65 Blood Pressure Mean 91 72 Pulse Oximetry 95 Oxygen Delivery Method Room Air Sepsis Recent Fever Within 48 Hours No Sepsis New/Unexplained Change in Mental Status N/A Sepsis Action Taken by Nursing No Action Required VITAL SIGNS - Vital signs and nursing notes were reviewed. GENERAL - 79-year-old male appearing stated age who is in no acute distress. Communicates well with provider and answers questions appropriately. SKIN - Without rashes. HEAD - NC/AT. EYES - PERRL with EOMI bilaterally. Sclera anicteric. Palpebral conjunctiva pink and moist with no injection noted. EARS - No deformities of external structures noted on gross examination bilaterally. No pain elicited with palpation of the tragus bilaterally. External auditory canals without discharge or otorrhea. Tympanic membranes pearly eddy without retraction or bulging. No fluid or purulent material visualized behind the TM. Handle of malleus, umbo, cone of light, pars tensa/flaccid all easily visualized. NOSE - Midline and without cyanosis. No epistaxis or purulent drainage noted. Septum midline without deviation or septal hematoma noted. MOUTH/OROPHARYNX - Without perioral cyanosis. Buccal mucosa pink and moist and without leukoplakia. Tongue midline with equal elevation of palate bilaterally. No tonsillar hypertrophy, erythema, or exudates noted. dentition noted. NECK - Neck with FROM. Supple to palpation. lymphadenopathy noted. No nuchal rigidity. LUNGS - Chest wall symmetric without accessory muscle use, intercostals retractions, or central cyanosis. Normal vesicular breath sounds CTA B/L. No wheezes, rales, or rhonchi appreciated. CARDIAC - RRR with S1/S2. No murmur, rubs, or gallops appreciated. ABDOMEN - Abdominal contour without pulsations or visible masses. BS normoactive all four quadrants. No tenderness, palpable masses, hepatosplenome sana, or ascites noted. EXTREMITIES - No clubbing or peripheral cyanosis. No pretibial edema present. +3/5 radial, posterior tibial, and dorsalis pedis pulses palpated throughout. +5/5 strength noted in UE/LE bilaterally. NEUROLOGIC - Cranial nerves II through XII grossly intact. Sensory intact to light touch throughout. Patellar reflexes +2/4. PSYCH - A&Ox3 and cooperates fully with examiner. Pt is very pleasant and interacts well with examiner. Course Administered Medications Discontinued Medications Sodium Chloride (Nss 1000ml) 500 mls @ 999 mls/hr IV .Q31M ONE Stop: 08/01/20 12:23 Last Infusion: 08/01/20 13:09 Dose: 0 mls/hr Documented by: [id number] Admin: 08/01/20 12:20 Dose: 999 mls/hr Documented by: [id number] Sodium Chloride (Nss 1000ml) 500 mls @ 999 mls/hr IV .Q31M ONE Stop: 08/01/20 13:44 Last Infusion: 08/01/20 14:13 Dose: 0 mls/hr Documented by: [id number] Admin: 08/01/20 13:18 Dose: 999 mls/hr Documented by: [id number] Ioversol (Optiray 320 125ml) 120 ml IV ONCE ONE Stop: 08/01/20 13:23 Last Admin: 08/01/20 13:22 Dose: 120 ml Documented by: [id number] Medical Decision Making Differential Diagnosis Benign positional vertigo, dehydration, hypovolemia, anemia, tumor, infection, hypoglycemia, electrolyte abnormalities, cardiac sources, intracerebral event, toxicologic, neurologic, as well as other pathologies. Medical Records Attestation: I reviewed the patient's medical records. Home Medications Current Medication List: was personally reviewed by me Laboratory Data Attestation: I reviewed the patient's lab results. Result diagrams: 08/01/20 12:10 08/01/20 12:10 Lab Results 08/01/20 08/01/20 08/01/20 Range/Units 12:10 12:10 12:10 WBC 8.01 (4.8-10.8) K/uL RBC 4.97 (4.7-6.1) M/uL Hgb 14.3 (14.0-18.0) g/dL Hct 42.4 (42-52) % MCV 85.3 (80-100) fL MCH 28.8 (25-34) pg MCHC 33.7 (32-36) g/dL RDW Std Deviation 42.6 (36.4-46.3) fL RDW Coeff of Matheus 13.6 (11.5-14.5) % Plt Count 155 (130-400) K/uL MPV 10.4 (7.4-10.4) fL Immature Gran % (Auto) 0.2 % Neut % (Auto) 71.6 % Lymph % (Auto) 18.7 % [place] % (Auto) 7.2 % Eos % (Auto) 2.1 % Baso % (Auto) 0.2 % Neut # (Auto) 5.72 (1.4-6.5) K/uL Lymph # (Auto) 1.50 (1.2-3.4) K/uL Assumption # (Auto) 0.58 (0.11-0.59) K/uL Eos # (Auto) 0.17 (0-0.5) K/uL Baso # (Auto) 0.02 (0-0.2) K/uL Immature Gran # (Auto) 0.02 (0.00-0.02) K/uL PT 11.0 (9.0-12.0) Seconds INR 1.0 (0.9-1.1) APTT 25.6 (21.0-31.0) Seconds PTT Ratio 0.9 Sodium 142 (136-145) mmol/L Potassium 3.8 (3.5-5.1) mmol/L Chloride 107 (98-107) mmol/L Carbon Dioxide 27 (21-32) mmol/L Anion Gap 9.0 (3-11) BUN 26 H (7-18) mg/dl Creatinine 1.41 H (0.6-1.4) mg/dl Est Cr Clr Drug Dosing 51.7 ml/min Est GFR ( Amer) 54.5 Est GFR (Non-Af Amer) 47.0 BUN/Creatinine Ratio 18.7 (10-20) Glucose 123 H (70-99) mg/dl Calcium 8.7 (8.5-10.1) mg/dl Total Bilirubin 1.3 H (0.2-1) mg/dl AST 20 (15-37) U/L ALT 46 (12-78) U/L Alkaline Phosphatase 50 (45-117) U/L Troponin I < 0.015 (0-0.045) ng/ml Total Protein 7.0 (6.4-8.2) gm/dl Albumin 3.4 (3.4-5.0) gm/dl Globulin 3.6 (2.5-4.0) gm/dl Albumin/Globulin Ratio 0.9 (0.9-2) Lipase 119 (73-393) U/L Imaging Data Attestation: I personally reviewed and interpreted this imaging study as follows: Radiologist's Impression: [facility], [place] [phone] XRay Report Patient: CHERYL COELHO IIIAdmit Date: 08/01/20 MR#: [id number]: [address] [facility] Acct ID:[id number]: Date: 1940[facility] Zip: [place] [address] Age: 79Location: ED Sex: MRoom/Bed: Att Phy:Diagnosis: LIGHTHEADED/DIZZY Gemini Phy: Walter Coelho MDService Date: 08/01/20 Fam Phy:Interpreting Phy: Gonzalez Logan MD Admit Phy: Ordering Phy: Case Myrick MD cc: ~ SINGLE VIEW CHEST CLINICAL HISTORY: Atypical chest pain. FINDINGS: 2 AP, portable, upright chest radiographs are compared to study dated 10/07/2017 and correlated with chest CT dated 07/15/2008. The examination is degraded by portable technique and patient rotation. The heart is top normal for projection noting mild atherosclerotic calcification of the thoracic aorta. A 10 mm pulmonary nodule in the right lower lobe is unchanged. There is no airspace consolidation or large pleural effusion. Atelectasis is noted at the left lung base. No pneumothorax is seen. The bony thorax is grossly intact. IMPRESSION: 1. No acute cardiopulmonary abnormality. 2. A 10 mm right lower lobe pulmonary nodule is similar in appearance to previous.. ACT 112: Negative or not required by law. Electronically signed by: Gonzalez Logan M.D. 08/01/2020 12:42 PM Dictated: 08/01/20 1240 Transcribed: 08/01/20 1240 [place], [place] [phone] CT Scan Report Patient: CHERYL COELHO IIIAdmit Date: 08/01/20 MR#: [id number]: [address] [facility] Acct ID:[id number]: Date: 1940[facility] Zip: [place] [address] Age: 79Location: ED Sex: MRoom/Bed: Att Phy:Diagnosis: LIGHTHEADED/DIZZY Gemini Phy: Walter Coelho MDService Date: 08/01/20 Fam Phy:Interpreting Phy: Deep Contreras MD Admit Phy: Ordering Phy: Case Myrick MD cc: ~ CT head/brain wo con CLINICAL HISTORY: Stroke evaluation DIZZINESS, LIGHTHEADEDNESS. COMPARISON STUDY: None TECHNIQUE: Axial CT of the brain is performed from the vertex to the skull base. IV contrast was not administered for this examination. A dose lowering technique was utilized adhering to the principles of ALARA. CT DOSE: FINDINGS: No intra or extra-axial mass lesions are visualized. There is no CT evidence of acute cortical infarction. There is no evidence of midline shift. There is no acute hemorrhage. No calvarial fractures are visualized. There are minimal white matter hypodensities likely on a small vessel basis. There is no evidence of pathologic ventricular dilatation. There is no evidence of acute sinusitis IMPRESSION: No acute intracranial findings ACT 112: Negative or not required by law. Electronically signed by: Deep Contreras M.D. 08/01/2020 1:42 PM Dictated: 08/01/20 1340 Transcribed: 08/01/20 1340 [facility], [place] [phone] CT Scan Report Patient: CHERYL COELHO IIIAdmit Date: 08/01/20 MR#: [id number]: [address] [facility] Acct ID:[id number]: Date: 1940[facility] Zip: [place] [address] Age: 79Location: ED Sex: MRoom/Bed: Att Phy:Diagnosis: LIGHTHEADED/DIZZY Gemini Phy: Walter Coelho MDService Date: 08/01/20 Fam Phy:Interpreting Phy: Tl Deluna MD Admit Phy: Ordering Phy: Case Myrick MD cc: ~ HEAD CTA HISTORY: Dizziness. Stroke evaluation TECHNIQUE: Multiaxial CT images of the head were performed following the intravenous administration of contrast to evaluate the major cerebral vessels. Maximum intensity projection images were also obtained. A dose lowering technique was utilized adhering to the principles of ALARA. COMPARISON: None. FINDINGS: There is no mass, hematoma, midline shift, or acute infarct. Visualized intracranial internal carotid arteries, distal vertebral arteries, and basilar artery are widely patent. There is no significant stenosis, occlusion, or aneurysm seen within the bilateral ACAs, MCAs, or orthotic practitioner. The major dural venous sinuses are widely patent. IMPRESSION: No significant stenosis, occlusion, or aneurysm within the [place]. ACT 112: Negative or not required by law. Electronically signed by: Tl Deluna M.D. 08/01/2020 2:00 PM Dictated: 08/01/20 1343 Transcribed: 08/01/20 1343 [facility], [place] [phone] CT Scan Report Patient: CHERYL COELHO IIIAdmit Date: 08/01/20 MR#: [id number]: [address] [facility] Acct ID:[id number]: Date: 1940City Zip: [place] [address] Age: 79Location: ED Sex: MRoom/Bed: Att Phy:Diagnosis: LIGHTHEADED/DIZZY Gemini Phy: JohnalejandroWalter MDService Date: 08/01/20 Fam Phy:Interpreting Phy: Deep Contreras MD Admit Phy: Ordering Phy: Case Myrick MD cc: ~ CT angio neck with con CLINICAL HISTORY: Stroke evaluation LIGHTHEADEDNESS, DIZZINESS. COMPARISON STUDY: No previous studies for comparison. TECHNIQUE: CT angiography was performed from the aortic arch to the skull base. MIP imaging was performed. The patient was scanned in a dynamic helical fashion during intravenous administration of 120 cc of Optiray 320. A dose lowering technique was utilized adhering to the principles of ALARA. CT DOSE: Technique: CT angiogram of the carotid and vertebral arteries was obtained using intravenous contrast and 3-D reconstruction. NASCET criteria was utilized. Findings: The right carotid revealed no evidence of aneurysm and no evidence of dissectio n. There is no evidence of hemodynamic significant stenosis. There is calcific plaque at the level the left carotid bulb. There is no evidence of hemodynamically significant carotid stenosis. There is no evidence of hemodynamically significant vertebral stenosis. There is no evidence of vertebral dissection. IMPRESSION: No evidence of hemodynamically significant carotid or vertebral artery stenosis. No evidence of dissection. ACT 112: Negative or not required by law. Electronically signed by: Deep Contreras M.D. 08/01/2020 1:44 PM Dictated: 08/01/20 1342 Transcribed: 08/01/20 1342 ECG Data Attestation: I personally reviewed and interpreted this ECG as follows: Indication: + other (dizziness) Rate (beats per minute): 49 Rhythm: + sinus bradycardia ECG Intervals/blocks: + Normal QT-c (393) ECG Yulan: + Normal ECG ST segments: no ST depression and no ST elevation Comparison ECG Date: from (10/07/2017) Change: the following changes noted (ventricular rate decreased by 33) MDM Narrative Patient was seen and evaluated as above in room B12. Review was performed of nursing notes and vital signs. I did review pertinent previous visits and patient history. After obtaining a thorough history and physical examination the above work up was performed. This is a 79-year-old male who presents emergency department complaining of dizziness that has been ongoing since Friday. In addition to the dizziness the patient also has an extremely low heart rate. An order was placed for continuous cardiac monitoring. The monitor shows a rate of with Sinus Edgar rhythm. I did discuss case with both cardiology as well as the medicine service. Patient and are in agreement with the treatment plan. Patient's BUN and creatinine are slightly elevated therefore he was given a normal saline bolus. The patient was evaluated during the global COVID-19 pandemic, and that diagnosis was suspected/considered upon their initial presentation. Their evaluation, treatment and testing was consistent with current guidelines for patients who present with complaints or symptoms that may be related to COVID- 19. Impression & Plan Dizziness, Bradycardia Discharge Plan Visit Data Chief Complaint: Dizziness Stated Complaint: LIGHTHEADED/DIZZY ED Provider: Case Myrick Discharge Problem: Dizziness, Bradycardia Forms Stand Alone Forms: [facility] Prescriptions Prescriptions: No Action cyanocobalamin (vitamin B-12) 1,000 mcg Tablet 1,000 mcg PO DAILY RF: 0 aspirin [Aspir-81] 81 mg Tablet,Delayed Release (Dr/Ec) 81 mg PO DAILY RF: 0 doxazosin [Cardura] 8 mg tablet 8 mg PO DAILY RF: 0 metronidazole 0.75 % Lotion 1 applic TOPICAL DAILY PRN (Reason: ..) RF: 0 hydrochlorothiazide 25 mg tablet 25 mg PO DAILY RF: 0 losartan [Cozaar] 100 mg tablet 100 mg PO DAILY RF: 0 fluticasone propionate [Flonase Allergy Relief] 50 mcg/actuation spray,suspension 2 spray intranasal DAILY RF: 0 finasteride 5 mg tablet 5 mg PO DAILY RF: 0
[2020-08-01] MEDS ORDERED: POLYETHYLENE (MIRALAX) 17 GM PACK PO PRN (17:08)
[2020-08-01] MEDS ORDERED: ACETAMINOPHEN 325 MG TAB PO PRN (17:08)
[2020-08-01] MEDS ORDERED: ONDANSETRON INJ 2 MG/ML 2 ML VIAL IV PRN (17:08)
[2020-08-01] MEDS ORDERED: PHARMACIST DISCHARGE MED REC CONSULT PRN (17:08)
[2020-08-01] MEDS ORDERED: GADOBUTROL 65ML VIAL IV ONE (18:58)
--- NOTE | 2020-08-01 19:18 | Magnetic Resonance Report ---
MRI OF THE BRAIN WITHOUT AND WITH IV CONTRAST CLINICAL HISTORY: vertigo, L eye visual changes COMPARISON STUDY: CT scan dated 08/01/2020 TECHNIQUE: MRI of the brain was performed from the vertex to the skull base utilizing various T1 and T2 weighted sequences. Following the IV administration of 11.5 mL of Gadavist contrast, additional en hanced images were obtained. FINDINGS: Sagittal T1, axial diffusion, proton density and T2 weighted axial, coronal FLAIR, and pre and post a xial T1-weighted images were acquired. These were supplemented with post gadolinium coronal T1 weight ed images. No intra or extra-axial mass lesions are visualized. Axial diffusion-weighted images reveal no evidence of acute or subacute infarction. There is no evidence of ventricular dilatation. Proton density T2-weighted and FLAIR images reveal minor foci of increased T2 signal within the white matter, likely on a small vessel basis. There are no abnormal flow voids. There is no evidence of pathologic enhancement. IMPRESSION: 1. No acute intracranial findings 2. No evidence of intracranial mass 3. No evidence of acute or subacute infarction. ACT 112: Negative or not required by law. Electronically signed by: Deep Contreras M.D. 08/01/2020 7:16 PM
[2020-08-01] MEDS: HEPARIN SOD 5,000 UNIT/0.5 ML VIAL SQ SCH (21:03)
[2020-08-02 06:02] LABS: Estimated Average Glucose 134 mg/dl; Hemoglobin A1C 6.3 % (4.5-5.6)
[2020-08-02] MEDS: HEPARIN SOD 5,000 UNIT/0.5 ML VIAL SQ SCH ×3 (06:42→21:24)
[2020-08-02 07:14] LABS: Hemoglobin 13.5 g/dL (14.0-18.0); Mean Corpuscular Hgb Conc 32.9 g/dL (32-36); Mean Corpuscular Volume 85.1 fL (80-100); Mean Platelet Volume 10.3 fL (7.4-10.4); Platelet Count 153 K/uL (130-400); RDW Coefficient of Variation 13.6 % (11.5-14.5); RDW Standard Deviation 42.6 fL (36.4-46.3); Red Blood Count 4.82 M/uL (4.7-6.1); White Blood Count 7.95 K/uL (4.8-10.8)
[2020-08-02 07:42] LABS: Calcium 8.5 mg/dl (8.5-10.1); Creatinine Clr Calc Pharmacy 47.7 ml/min; Est GFR (African American) 50.2; Est GFR (Non-African American) 43.3; Potassium 3.8 mmol/L (3.5-5.1)
[2020-08-02] MEDS: ASPIRIN 81 MG ECTAB PO SCH (08:26)
[2020-08-02] MEDS: FLUTICASONE PROPIONATE NA SPR 16 GM BTL NAE SCH (08:26)
[2020-08-02] MEDS: CYANOCOBALAMIN 500 MCG TABLET (VITAMIN B-12) PO SCH (08:26)
--- NOTE | 2020-08-02 08:36 | Pre Anesthesia Assessment ---
Date of Service August 02, 2020 Pre Sedation Assessment Vital Signs Temp Pulse Pulse Resp BP BP Pulse Ox 08/02/20 08:20 63 17 139/72 95 08/02/20 07:28 36.8 C 48 L 20 122/71 93 08/02/20 07:06 55 L 08/02/20 03:40 36.8 C 53 L 19 105/55 L 93 08/02/20 00:00 59 L 08/01/20 23:25 36.4 C L 55 L 18 106/64 93 08/01/20 17:42 44 L 08/01/20 17:11 36.6 C 45 L 20 124/67 95 08/01/20 13:50 44 L 18 139/65 08/01/20 11:18 36.6 C 51 L 18 131/72 95 Cardiovascular RRR, no murmur, no edema Respiratory normal respiratory effort, lungs clear to auscultation Pre-Sedation Airway Assessment Smoking Status: Former smoker Hx Sleep Apnea: No Short, Thick Neck: Yes Thyromental Distance: > or= 3.5 Finger Breadths Oral Cavity: + WNL Mallampati Class: III ASA: ASA3 NPO Status Date of Last Intake of Fluids: 08/01/20 Time of Last Intake of Fluids: 17:00 Date of Last Intake of Solid Food: 08/01/20 Time of Last Intake of Solid Foods: 17:00 Procedure Planning Contraindications for Sedation: none Current Medications Reviewed: Yes Notes The planned sedation has been discussed with the patient. Informed Consent was obtained. I have identified the patient, determined the appropriateness of sedation and have assessed the patient immediately prior to the procedure. All medicine(s) and interventions are by my order.
--- NOTE | 2020-08-02 08:36 | History & Physical Bridge Note ---
Date of Service August 02, 2020 History & Physical Bridge Note I have examined the patient, reviewed the History & Physical and in the interval since the performance of the History & Physical I have noted the following changes of clinical significance: pt with irreversible symptomatic bradycardia for a ppm
[2020-08-02] MEDS ORDERED: fentaNYL citrate 100 MCG/2 ML VIAL ONE ×2 (08:51→09:42)
[2020-08-02] MEDS ORDERED: CEFAZOLIN 250 MG/ML 1 GM VIAL ONE (08:51)
[2020-08-02] MEDS ORDERED: MIDAZOLAM HCL 5 MG/ML 1 ML VIAL ONE (08:51)
[2020-08-02] MEDS ORDERED: metroNIDAZOLE 0.75% TOPICAL GEL 45 GM TUBE TOP PRN (09:00)
--- NOTE | 2020-08-02 10:08 | Post Anesthesia Assessment ---
Date of Service August 02, 2020 Post Sedation Assessment Vital Signs Temp Pulse Pulse Resp BP BP Pulse Ox 08/02/20 08:20 63 17 139/72 95 08/02/20 07:28 36.8 C 48 L 20 122/71 93 08/02/20 07:06 55 L 08/02/20 03:40 36.8 C 53 L 19 105/55 L 93 08/02/20 00:00 59 L 08/01/20 23:25 36.4 C L 55 L 18 106/64 93 08/01/20 17:42 44 L 08/01/20 17:11 36.6 C 45 L 20 124/67 95 08/01/20 13:50 44 L 18 139/65 08/01/20 11:18 36.6 C 51 L 18 131/72 95 Recovery Score Activity: Moves 4 extremities Respiration: Deep Breath/Cough Circulation: +/-20% PreAnes Value Consciousness: Fully Awake Oxygen Saturation: > 92% On Room Air Discharge Sedation Level of Care: Fast Track Phase II Post Sedation Plan On clinical assessment, the patient appears to have tolerated the sedation without complications. Patient is recovering as anticipated. Patient will continue to be monitored by nursing and may be discharged when sedation discharge criteria are met per below protocol. Upon Completions of procedure up to 15 minutes continue every 5 minute vital signs and the P.A.R. score; then discharge to a Phase I or Fast Track to Phase II per the following guidelines: * Discharge Patient to appropriate Phase II area if PAR is 8 or greater or return to pre- procedure baseline. The post - procedure orders will be as directed. * If PAR score is less than 8 or not return to pre-procedure baseline then patient will follow Phase I monitoring till PAR is reached for Phase II. The Phase I may be done in procedure room or may call to secure a Phase I area. * If naloxone or flumazenil are used for reversal, hold in Phase I for continued monitoring from when last reversal dose was given for a minimum of 60 minutes or longer pending the nurse and/or physician discretion of patient condition before discharge to Phase II. Please call the Sedation Physician to re-evaluate and complete post-note for discharge to Phase II area. Do NOT discharge from procedure sedation or Phase 1 until post- sedation evaluation note is complete by procedure /sedation MD Sedation Discharge Instructions to be given to the patient at discharge to home.
--- NOTE | 2020-08-02 10:10 | Operative Report ---
Post Operative Report Pre & Post Diagnosis Irreversible symptomatic sinus bradycardia Operation Date: 08/02/20 09:00 <No data on this case meets the specified criteria> I identified the patient and participated in the time-out.: Yes Procedure Operation Date: 08/02/20 09:00 Actual Procedures p Pacer with A/V Leads (Dual) - Cheri Vicente DO Surgeon Cheri Vicente, Occup Therapist none Estimated Blood Loss 15 Findings Consistent with Post-Op Diagnosis Specimens none Description of Procedure see official report I attest to the content of the Intraoperative Record and any orders documented therein. Any exceptions are noted below.
--- NOTE | 2020-08-02 12:58 | Operative Report (OR) ---
DATE OF OPERATION: 08/02/2020 PREOPERATIVE DIAGNOSIS: Irreversible symptomatic sinus bradycardia. POSTOPERATIVE DIAGNOSIS: Irreversible symptomatic sinus bradycardia. PROCEDURE: Dual chamber (left bundle) rate responsive permanent pacemaker under fluoroscopic guidance along with peripheral venogram along with intracardiac electrogram mapping of the His bundle. SURGEON: Cheri Vicente DO. ASSISTANTS: None. ANESTHESIA: Monitored conscious sedation administered under my supervision by Elena Brandt; start time 8:59, end time 10:06, a total of 5 mg of Versed and 125 mcg of fentanyl. IV CONTRAST: 15 mL INTRAVENOUS FLUIDS: 30 mL BLOOD LOSS: 20 mL URINE OUTPUT: Not applicable. SPECIMENS: None. FINDINGS: See below. DRAINS: None. INDICATIONS: This 79-year-old gentleman with past medical history of hypertension, benign prostatic hypertrophy, gastroesophageal reflux disease, chronic kidney disease stage III, cataracts. He presented to [facility] with dizziness and presyncope, was found to be profound bradycardia in the 30s. He was recommended a permanent pacemaker secondary to irreversible symptomatic sinus bradycardia. CONSENT: Consent was obtained prior to the patient going into electrophysiology lab. The patient was informed of risks, benefits and alternative procedure. Risks include but not limited to sudden cardiac , cardiac arrhythmias, cerebrovascular accident, myocardial infarction, injury to the blood vessels, chamber of the heart, lung, bleeding, and infection. The patient understood these risks and agreed with procedure as planned. Informed consent was obtained. DESCRIPTION OF THE PROCEDURE: The patient was brought into the electrophysiology lab in fasting state and was connected to continuous monitor and storage bin tender. Timeout was performed to ensure patient identity and procedure correctly. The patient received prophylactic antibiotics prior to incision. He was prepped and draped over the left infraclavicular space in normal surgical standard fashion. Monitored conscious sedation was given throughout the procedure for patient's comfort level. [place] precautions obtained throughout the procedure. 10 mL of 1% lidocaine, bupivacaine mixture were given in the left deltopectoral groove. Incision was made in left deltopectoral. A pacemaker pocket was created using blunt dissection over the pectoralis muscle within the pectoralis fascia. Then, a peripheral venogram was performed to identify the axillary vein. Venous axillary access was obtained through a needlestick without any problems. The guidewire was inserted without any resistance. Then an 8-Gambian sheath was inserted over the guidewire without any resistance. Dilator was removed and a second guidewire was inserted through the 8-Gambian sheath to allow for retained venous access. Sheath was removed, flushed, dilator reinserted and then was reinserted along the guidewire. The guidewire and dilator were removed. Then, the His sheath was advanced into the right atrium over a Glidewire. Then the Glidewire and dilator were removed. Then, the left bundle lead was advanced through the His sheath and intracardiac electrogram mapping was performed of the His bundle. The AH was found to be 118 and the HV was 61 milliseconds. I then marked where the His bundle area was located in CEDEÑO 30. Then I came down about 2 cm from that His bundle area in line with the apex of the heart and marked out on my fluoroscopy screen to kind of give me a sense of where I wanted to aim my left bundle lead. Then in PALAUAN, I positioned the lead on the septum. Baseline measurements of what the QRS morphology looked like in V1 as well as the pacing stem to QRS peak in V5 were then I gave a series of turns to start screwing the lead into the septum, paused, remeasured my QRS morphology as well as my pacing stem to QRS peak and looked out for my impedance. Then I gave another series of turns screwing the lead into the septum. Repeated my measurements again and I saw that the notch in the QRS and V1 was moving out towards the distal end of the QRS complex up into the baseline. I had a nice impedance drops. I then gave contrast through the His sheath to see that I was pretty much into the septum all the way to the point where the ring was just touching. I gave one another turn and then I had adequate pacing and sensing thresholds. The His sheath was then slit under fluoroscopic guidance. I then placed a second 8-Gambian sheath through the retained guidewire without any resistance. Guidewire and dilator removed. The right atrial lead was then advanced into right atrium and positioned interatrial appendage. I did have to reposition it once; it was positioned into right atrial appendage under fluoroscopic guidance. There was adequate pacing and sensing thresholds and no diaphragmatic stimulation in high output pacing. The 8-Gambian sheath was peeled away and lead was fixated to pectoralis muscle using 0 silk suture. I then slit the 8-Gambian sheath over the left bundle lead and then fixated that lead to the pectoralis muscle. Then the pocket was flushed with copious amounts of bacitracin saline wash and inspected for hemostasis. The pulse generator was attached to the leads making sure the pins were in appropriate position, passed set screw and set screws were all tightened. Pulse generator was then placed in the pocket, making sure the leads were lying flat beneath the device. A stay stitch using 0 silk suture was used to secure the rest of pectoralis muscle. The incision was then closed in 3-layer fashion with 2-0 Vicryl interrupted suture followed by 3-0 Vicryl interrupted suture, followed 4-0 Monocryl running stitch and Dermabond was applied followed by a Telfa and micropore dressing. EQUIPMENT: 1. Pulse generator is a IROCKE Estelle XT DR ANDREE Hanks [id number], serial number [id number]. 2. Right atrial lead Medtronic 5076-52 cm, serial number [id number]. 3. Right ventricular lead, Medtronic 3830-69 cm, serial number [id number]. INTRAOPERATIVE TESTIN. Right atrial lead: P-wave 3.1 millivolts, impedance 552 ohms, threshold 0.5 volts at 0.5 milliseconds. 2. Left bundle lead R waves 9.7 millivolts, impedance 863 ohms, threshold 0.3 volts at 0.5 milliseconds. FINAL MEASUREMENTS THROUGH THE DEVICE: 1. Right atrial lead R waves 1.9 millivolts, impedance 456 ohms, threshold 0.75 volts at 0.4 milliseconds. 2. Left bundle lead R waves 8.4 millivolts, impedance 779 ohms, threshold 0.5 volts at 0.4 milliseconds. FINAL PARAMETERS: MVP-R 60/120. Right atrial amplitude 3.5 volts, pulse width 0.4 milliseconds, sensitivity 0.3 millivolts. Right ventricular amplitude 3.5 volts, pulse width 0.4 milliseconds, sensitivity 0.9 millivolts. IMPRESSION: Successful implantation of a dual chamber permanent rate responsive with the RV lead in the left bundle position under fluoroscopic guidance along with intracardiac electrogram mapping of the His bundle secondary to irreversible symptomatic sinus bradycardia. PLAN: Monitor patient overnight, 12-lead ECG, chest x-ray. He is not allowed to lift left elbow or left shoulder for 1 month. He cannot lift more than 10 pounds with the left arm for 2 weeks. He is to leave the dressing on and dry until his wound check next week. I attest to the content of the Intraoperative Record and any orders documented therein. Any exception s are noted below.
--- NOTE | 2020-08-02 14:15 | Electrocardiogram Report ---
Test Reason : Blood Pressure : / mmHG Vent. Rate : 049 BPM Atrial Rate : 049 BPM P-R Int : 172 ms QRS Dur : 092 ms QT Int : 436 ms P-R-T Axes : -04 -27 022 degrees QTc Int : 393 ms Sinus bradycardia Otherwise normal ECG When compared with ECG of 07-OCT-2017 13:19, Vent. rate has decreased BY 33 BPM Nonspecific T wave abnormality no longer evident in Lateral leads Confirmed by Dilan Jackson ([id number]) on 08/02/2020 2:15:14 PM Referred By: Walter Arizmendi Confirmed By:Dilan Jackson
--- NOTE | 2020-08-02 14:21 | Electrocardiogram Report ---
Test Reason : Blood Pressure : / mmHG Vent. Rate : 045 BPM Atrial Rate : 045 BPM P-R Int : 186 ms QRS Dur : 082 ms QT Int : 464 ms P-R-T Axes : 010 -25 012 degrees QTc Int : 401 ms Sinus bradycardia Otherwise normal ECG When compared with ECG of 01-AUG-2020 11:29, (unconfirmed) No significant change was found Confirmed by Dilan Jackson ([id number]) on 08/02/2020 2:21:44 PM Referred By: Walter Arizmendi Confirmed By:Dilan Jackson
--- NOTE | 2020-08-02 15:15 | Cardiology Progress Note ---
Date of Service August 02, 2020 Assessment & Plan (1) Pre-syncope: Patient presents with symptoms consistent with symptomatic bradycardia/chronotropic incompetence. Familial history of need for pacemaker/sick sinus syndrome. No prior history of structural heart disease Patient underwent dual-chamber pacemaker insertion earlier today with good clinical response. Overall feels well We will continue observation overnight maintain usual outpatient medications for hypertension (2) Symptomatic bradycardia: (3) Hypertension: Admission and Anticipated Discharge Date Admission Date: August 01, 2020 Subjective Patient seen and examined, chart, medications telemetry reviewed. Underwent dual-chamber pacemaker insertion this morning and feels improved almost immediately. No issues overnight. Currently pacing at 60 bpm Physical Exam Constitutional: WD/WN, vitals as above + obese Eyes: PERRL, conjunctivae normal, anicteric sclerae ENMT: external ear and nose normal, oropharynx normal Neck: trachea midline, no thyromegaly Respiratory: normal respiratory effort, lungs clear to auscultation Cardiovascular: Rate/Rhythm: regular rate and regular rhythm Heart Sounds: normal S1 and normal S2; no gallop and no murmur Palpation: normal PMI Vessels: normal carotid upstroke and radial pulses present; no JVD and no carotid bruit Extremities: no edema Chest (Breasts): Chest: + pacemaker (Site healing well without hematoma, bandage dry) Gastrointestinal (Abdomen): normal bowel sounds, soft, nontender, no hepatosplenomegaly Musculoskeletal: no cyanosis or clubbing, extremities motor strength 5/5 Skin: no rashes, warm and dry Neurologic: PERRL, EOMI, accommodation nl, no face palsy, no dysarthria Psychiatric: A+Ox3, euthymic affect Results & Data ([facility]) Vital Signs (Past 12 Hours) Vital Signs Temp Pulse Pulse Resp BP BP Pulse Ox 08/02/20 13:06 59 L 18 130/75 92 08/02/20 12:34 57 L 18 118/70 92 08/02/20 11:53 64 18 137/73 93 08/02/20 11:10 64 18 159/91 H 93 08/02/20 10:55 61 18 138/76 93 08/02/20 10:40 36.4 C L 61 18 132/82 94 08/02/20 10:29 60 18 121/72 91 08/02/20 10:15 63 18 116/69 93 08/02/20 08:20 63 17 139/72 95 08/02/20 07:28 36.8 C 48 L 20 122/71 93 08/02/20 07:06 55 L 08/02/20 03:40 36.8 C 53 L 19 105/55 L 93 Laboratory Results Laboratory Results - last 24 hr 08/01/20 08/01/20 08/02/20 12:10 17:57 00:11 WBC RBC Hgb Hct MCV MCH MCHC RDW Std Deviation RDW Coeff of Matheus Plt Count MPV Sodium Potassium Chloride Carbon Dioxide Anion Gap BUN Creatinine Est Cr Clr Drug Dosing Est GFR ( Amer) Est GFR (Non-Af Amer) BUN/Creatinine Ratio Glucose Estimat Average Glucose 134 Hemoglobin A1c 6.3 H Calcium Troponin I < 0.015 < 0.015 Triglycerides Cholesterol LDL Cholesterol, Calc VLDL Cholesterol, Calc HDL Cholesterol Cholesterol/HDL Ratio 08/02/20 08/02/20 07:02 07:02 WBC 7.95 RBC 4.82 Hgb 13.5 L Hct 41.0 L MCV 85.1 MCH 28.0 MCHC 32.9 RDW Std Deviation 42.6 RDW Coeff of Matheus 13.6 Plt Count 153 MPV 10.3 Sodium 140 Potassium 3.8 Chloride 106 Carbon Dioxide 27 Anion Gap 7.0 BUN 24 H Creatinine 1.51 H Est Cr Clr Drug Dosing 47.7 Est GFR ( Amer) 50.2 Est GFR (Non-Af Amer) 43.3 BUN/Creatinine Ratio 16.0 Glucose 99 Estimat Average Glucose Hemoglobin A1c Calcium 8.5 Troponin I Triglycerides 65 Cholesterol 83 LDL Cholesterol, Calc 26 VLDL Cholesterol, Calc 13 HDL Cholesterol 44 Cholesterol/HDL Ratio 2
--- NOTE | 2020-08-02 16:52 | Hospitalist Progress Note ---
Date of Service August 02, 2020 Assessment & Plan (1) Pre-syncope: (2) Symptomatic bradycardia: Present on admission with dizziness and lightheadedness EKG with sinus bradycardia at 49. S/P dual-chamber pacemaker insertion today by Dr. Vicente Echo showed left ventricular systolic function is normal. Left ventricular wall motion is normal. Ejection fraction 60 to 65%. Discussed with patient about restrictions after the pacemaker: Don't drive until your doctor says it's OK. Do not lift the left elbow over the left shoulder for 1 month Do not lift no more than 10 lbs for 1 week Do not stretch your arm behind your back for as long as directed by your doctor. Keep incision area clean and dry Check your incision area for signs of infection (redness, swelling, drainage, or warmth). Before you receive any treatment, tell all healthcare providers (including your dentist) that you have a pacemaker. Keep your cell phone away from your pacemaker. Don't carry the phone in your shirt pocket overlying the pacemaker, even when it's turned off. Avoid strong magnets If you order for an MRI in the future, please inform that you have a pacemaker (3) Dizziness: (4) Visual changes: Due to Symptomatic bradycardia R/o any CVA MRI brain showed no acute intracranial findings. No evidence of intracranial mass. No evidence of acute or subacute infarction. CTA head/neck showed no evidence of hemodynamically significant carotid or vertebral artery stenosis. No evidence of dissection. CT head showed no acute finding No focal neuro deficit on exam Clinically stable (5) Hypertension: BP stable Continue to hold losartan and hctz due to slight elevation in creatinine Continue monitor BP (6) CKD (chronic kidney disease), stage III: At baseline with creatinine ~1.4, creatinine 1.5 today Continue to hold HCTZ and Losartan Continue monitor BMP (7) BPH (benign prostatic hyperplasia): Current home regimen includes finasteride and doxazosin. Will resume on discharge DVT Ppx: SQ heparin Code status: FULL PCP: Kyleigh Dispo: Plan to discharge once medically stable Admission and Anticipated Discharge Date Admission Date: August 01, 2020 Subjective Pt was seen and examined Lying in bed with no distress with at bedside Pt said that he does not feel any dizziness since after the pacemaker placement he said that he feels a little tenderness around the area where the pacemaker placed Denies any chest pain, palpitation, dizziness and SOB Physical Exam Physical Exam: General- No acute distress Head- atraumatic Eyes- PERRL, EOMI, ENT- oropharynx clear Neck- supple, no JVD Lungs- clear to auscultation Chest- Tenderness around the area with the pacemaker placement, no hematoma Heart- regular rhythm; no murmur Abdomen- normal bowel sounds, soft, nontender Extremities- no calf tenderness Neuro- alert, oriented x 3; PERRL, EOMI; no facial palsy; no dysarthria Skin- warm & dry Results & Data Results & Data ([facility]) Vital Signs (Past 12 Hours) Vital Signs Temp Pulse Pulse Resp BP BP Pulse Ox 08/02/20 15:22 36.7 C 65 20 132/73 92 08/02/20 13:06 59 L 18 130/75 92 08/02/20 12:34 57 L 18 118/70 92 08/02/20 11:53 64 18 137/73 93 08/02/20 11:10 64 18 159/91 H 93 08/02/20 10:55 61 18 138/76 93 08/02/20 10:40 36.4 C L 61 18 132/82 94 08/02/20 10:29 60 18 121/72 91 08/02/20 10:15 63 18 116/69 93 08/02/20 08:20 63 17 139/72 95 08/02/20 07:28 36.8 C 48 L 20 122/71 93 08/02/20 07:06 55 L
--- NOTE | 2020-08-02 21:12 | Consultation Report ---
DATE OF CONSULTATION: 08/02/2020 REASON FOR CONSULTATION: Dizziness. HISTORY OF PRESENT ILLNESS: The patient is a 79-year-old right-handed male with a history of paroxysmal supraventricular tachycardia, chronic kidney disease, hypertension and BPH. On this background on Friday morning, which is approximately 4 days prior to admission, the patient bent over and stood up quickly. As he bent over and stood up, he had vertigo, which lasted about a minute, somewhat less and improved as he came up. The episode was so brief he did not notice any other neurologic accompaniments, diplopia, dysarthria, nausea, vomiting, unilateral weakness or numbness. He has no prior history of the same. There were no otologic symptoms such as ear pain, ringing or hearing loss. In general, he does not become otherwise vertiginous. That did not recur. Several days later, while not exerting himself, he noted blurred vision binocularly and then scintillating visual phenomenon only in the left eye in the temporal field, lasting seconds, not accompanied by or followed by a headache. There was no lightheadedness or dizziness or other neurologic symptoms at that time. He made an appointment to see primary care. On the day of this visit, he felt mildly generally unwell. He uses the term dizzy, but he was not vertiginous nor did he experience lightheadedness such as dimming of vision or near syncope. He was seen by primary care who discussed this case with cardiology. They were concerned given his history of SVT and prior history of some bradycardia that this may be heart rate related. He was sent to the Emergency Room. He has not had any recurrent events. There was no chest pain, palpitations, shortness of breath. He has not been ill. There has been no head or neck trauma. He has noted some decrease in energy level. PAST MEDICAL HISTORY: As above, additionally reflux and hypertension. PAST SURGICAL HISTORY: History of cholecystectomy. FAMILY HISTORY: Diabetes and heart disease. SOCIAL HISTORY: Former smoker, drinks alcohol. REVIEW OF SYSTEMS: As above. HOME MEDICATIONS: Aspirin, B12, Cardura, finasteride, Flonase, hydrochlorothiazide, Cozaar and topical metronidazole. ALLERGIES: VANCOMYCIN, LENO INHIBITORS, ACETAMINOPHEN, CODEINE, OXYCODONE AND DETROL. DIAGNOSTICS: White count, H and H and platelet count are normal. PT, PTT are normal. Chemistry profile notable for BUN of 26 and a creatinine of 1.4, glucose was 123. Hemoglobin A1c 6.3. Total bilirubin 1.3. Total cholesterol 83, LDL 26. CT of the head, which I have reviewed; minimal white matter hypodensities likely on small vessel basis. Head CTA; no significant stenosis, occlusion, or aneurysm within the [place]. CTA of the neck; no hemodynamically significant carotid or vertebral artery stenosis, no dissection. MRI of the brain, which I have reviewed; minor foci of increased T2 signal within the white matter, likely on a small vessel basis. No acute intracranial findings, mass or acute or subacute infarction. The patient's electrocardiogram on admission showed a ventricular rate and atrial rate of 49. Nonspecific T-wave abnormality no longer evident in lateral leads. Echocardiogram; LV size is normal. Moderate concentric LVH, EF 60%-65%, grade 2 diastolic dysfunction. Left atrium moderately dilated. No significant valvular disease. PHYSICAL EXAMINATION: The lowest documented pulse on the vitals sheet was 48. Temperature 37.3, blood pressure 133/75, O2 sat 92% on room air. The patient is awake and alert with normal speech and language. Affect is appropriate. He is in no distress. He underwent a surgical placement of a permanent pacemaker today. No temporal artery tenderness is noted. Pupils are equal, round, reactive to light. I could not reliably visualize the optic nerves. There is normal woodall, motility, facial sensation and symmetry. Speech and language are normal. Gross hearing and DICTATION ENDS HERE
--- NOTE | 2020-08-02 21:17 | Consultation Report ---
DATE OF CONSULTATION: 08/02/2020 ADDENDUM: There is normal facial symmetry. Speech and language are normal. Tongue is midline. Motor 5/5, no drift. Normal rapid alternating movements. Symmetric reflexes. Downgoing toes. Ondjol-cy-qvtd and mtmd-rx-asws are normal. There is no dysdiadochokinesia. Reflexes are symmetric. Toes downgoing. Intact light touch bilaterally. Gait was not tested as the patient is recently postsurgical. Provocative head maneuvers are negative. IMPRESSION AND PLAN: The patient's initial episode of "dizziness" about 4 days ago sounds peripheral and labyrinthine. The patient's visual symptoms several days later have a flavor for a migrainous visual phenomenon, although the patient has no history of migraine, no history of such visual phenomenon and the visual phenomenon were relatively brief in duration. I would recommend checking a sedimentation rate, although I doubt temporal arteritis and recommended an ophthalmology evaluation as an outpatient to evaluate the retina. I doubt his visual complaints represent global hypoperfusion given the positive visual phenomenon in the left eye. Unclear to this examiner why he generally felt unwell or slightly imbalanced on the day of admission. There is certainly no evidence of posterior circulation stroke or high-grade vertebrobasilar stenosis to explain this. He may have felt mildly off balance related to some low level labyrinthopathy, although I am unable to demonstrate that. We will sign off. Please reconsult if necessary.
[2020-08-03] MEDS: HEPARIN SOD 5,000 UNIT/0.5 ML VIAL SQ SCH (06:06)
[2020-08-03 06:31] LABS: Hematocrit (blood only) 41.3 % (42-52); Hemoglobin 13.8 g/dL (14.0-18.0); Mean Corpuscular Hemoglobin 28.4 pg (25-34); Mean Corpuscular Hgb Conc 33.4 g/dL (32-36); Mean Platelet Volume 10.4 fL (7.4-10.4); Platelet Count 145 K/uL (130-400); RDW Coefficient of Variation 13.4 % (11.5-14.5); RDW Standard Deviation 41.9 fL (36.4-46.3); Red Blood Count 4.86 M/uL (4.7-6.1); White Blood Count 9.09 K/uL (4.8-10.8)
[2020-08-03 07:04] LABS: BUN Creatinine Ratio 17.7 (10-20); Calcium 8.5 mg/dl (8.5-10.1); Creatinine Clr Calc Pharmacy 44.3 ml/min; Est GFR (African American) 51.8; Est GFR (Non-African American) 44.7; Potassium 3.7 mmol/L (3.5-5.1)
--- NOTE | 2020-08-03 07:27 | XRay Report ---
XR chest 2V PA/lateral CLINICAL HISTORY: Post pacemaker study COMPARISON STUDY: 08/01/2020 FINDINGS: There is been interval placement of a left subclavian dual-chamber central venous pacemaker . There is no pneumothorax. Electrode position appears unremarkable. There is no failure. There is no focal pulmonary consolidation. There is calcified granuloma within the right midlung zone.[ IMPRESSION: No evidence of pneumothorax status post placement of a left subclavian dual-chamber centr al venous pacemaker ACT 112: Negative or not required by law. Electronically signed by: Deep Contreras M.D. 08/03/2020 7:25 AM
[2020-08-03] MEDS: ASPIRIN 81 MG ECTAB PO SCH (08:48)
[2020-08-03] MEDS: FLUTICASONE PROPIONATE NA SPR 16 GM BTL NAE SCH (08:49)
[2020-08-03] MEDS: CYANOCOBALAMIN 500 MCG TABLET (VITAMIN B-12) PO SCH (08:49)
--- NOTE | 2020-08-03 10:55 | Cardiology Progress Note ---
Date of Service August 03, 2020 Assessment & Plan (1) Pre-syncope: Patient presents with symptoms consistent with symptomatic bradycardia/chronotropic incompetence. Familial history of need for pacemaker/sick sinus syndrome. No prior history of structural heart disease Patient underwent dual-chamber pacemaker insertion currently normal device function. Okay for discharge to home today follow-up scheduled with pacemaker clinic 08/09/2020 Will need follow-up with Dr. Rangel 4 to 6 weeks (2) Symptomatic bradycardia: (3) Hypertension: Admission and Anticipated Discharge Date Admission Date: August 01, 2020 Subjective Patient was seen and examined, chart, medications, telemetry reviewed Dizziness nearly resolved. Ambulatory in the hallway. Pacemaker functioning appropriately. No irritation at the pacer site Physical Exam Constitutional: WD/WN, vitals as above + obese Eyes: PERRL, conjunctivae normal, anicteric sclerae ENMT: external ear and nose normal, oropharynx normal Neck: trachea midline, no thyromegaly Respiratory: normal respiratory effort, lungs clear to auscultation Cardiovascular: Rate/Rhythm: regular rate and regular rhythm Heart Sounds: normal S1 and normal S2; no gallop and no murmur Palpation: normal PMI Vessels: normal carotid upstroke and radial pulses present; no JVD and no carotid bruit Extremities: no edema Chest (Breasts): Chest: + pacemaker (Site healing well without hematoma, bandage dry) Gastrointestinal (Abdomen): normal bowel sounds, soft, nontender, no hepatosplenomegaly Musculoskeletal: no cyanosis or clubbing, extremities motor strength 5/5 Skin: no rashes, warm and dry Neurologic: PERRL, EOMI, accommodation nl, no face palsy, no dysarthria Psychiatric: A+Ox3, euthymic affect Results & Data ([facility]) Vital Signs (Past 12 Hours) Vital Signs Temp Pulse Resp BP Pulse Ox 08/03/20 07:38 36.7 C 60 19 132/74 92 08/03/20 04:06 36.7 C 54 L 18 114/66 93 08/02/20 23:15 37 C 66 16 156/83 H 94
[2020-08-03] MEDS ORDERED: STROKE PATIENT DISCHARGE STA (14:12)
--- NOTE | 2020-08-03 14:25 | Discharge Summary ---
Date of Service August 03, 2020 Admission HPI Per Admitting Provider This is a 79yo M with a PMH of HTN, BPH, CKD III and other medical problems listed below who presents with visual changes and lightheadedness x 4 days. Patient leaned over during the weekend and had sudden onset episode of the room spinning. Continue to feel fatigued with lightheadedness and presyncope that day, but vertigo did not return. Also endorsing intermittent chest tightness but did not seem to correlate with presyncopal episode. The next day, patient had visual changes in peripheral field of left eye that resolved later that day and have not returned. Continues to feel fatigued, lightheaded, with intermittent episodes of presyncope. Does not seem to be correlated with exertion but most episodes occur with some type of positional change. Also endorsing chest tightness spreading across chest that is nonradiating and nonexertional. Associated with mild shortness of breath but no nausea or vomiting. No weakness of extremities or difficulty with ambulation. No palpitations noted. Patient denies any personal history of heart disease or stroke. No history of migraine headache or vertigo in the past. states that patient has been working on a [employer] project since April and usually works for the entire day without issue. Has noticed a significant decline in energy level over the past 4 days. Patient is taking doxazosin and finasteride for BPH as well as hydrochlorothiazide and losartan for blood pressure. Denies any fever, chills, headache, cough, palpitations, wheezing, nausea, vomiting, abdominal pain, dysuria, diarrhea or constipation. Admission Exam Per Admitting Provider General- No acute distress Head- atraumatic Eyes- PERRL, EOMI, ENT- oropharynx clear Neck- supple, no JVD Lungs- clear to auscultation Chest- Tenderness around the area with the pacemaker placement, no hematoma Heart- regular rhythm; no murmur Abdomen- normal bowel sounds, soft, nontender Extremities- no calf tenderness Neuro- alert, oriented x 3; PERRL, EOMI; no facial palsy; no dysarthria Skin- warm & dry Principal Diagnosis (1) Pre-syncope: (2) Symptomatic bradycardia: (3) Dizziness: (4) Visual changes: (5) Hypertension: (6) CKD (chronic kidney disease), stage III: (7) BPH (benign prostatic hyperplasia): Discharge Exam General- No acute distress Head- atraumatic Eyes- PERRL, EOMI, ENT- oropharynx clear Neck- supple, no JVD Lungs- clear to auscultation Chest- Tenderness around the area with the pacemaker placement, no hematoma Heart- regular rhythm; no murmur Abdomen- normal bowel sounds, soft, nontender Extremities- no calf tenderness Neuro- alert, oriented x 3; PERRL, EOMI; no facial palsy; no dysarthria Skin- warm & dry Discharge Data Allergies Allergy/AdvReac Type Severity Reaction Status Date / Time vancomycin Allergy Severe Hives Verified 08/01/20 15:11 LENO Inhibitors AdvReac Severe COUGHING Verified 08/01/20 15:11 acetaminophen AdvReac Intermediate HALLUCINATI Verified 08/01/20 15:11 ONS codeine AdvReac Intermediate HALLUCINATI Verified 08/01/20 15:11 ONS oxycodone AdvReac Intermediate HALLUCINATI Verified 08/01/20 15:11 ONS tolterodine [From Detrol] AdvReac constipation, Verified 08/01/20 15:13 blurred vision, urinary retention Consultations 08/01/20 11:54 Consult Cardiology Stat 08/01/20 14:07 ED Decision to Admit Stat 08/01/20 17:08 Consult Case Management - Discharge Planning Routine Consult Neurology Routine Procedures Performed Operation Date: 08/02/20 09:00 Actual Procedures p Pacer with A/V Leads (Dual) - Cheri Vicente DO s Venogram, Unilateral - DO laina Cooper Bundle of his Recording - Cheri Vicente DO Ordered Studies 08/01/20 11:53 CT angio head w con Stat CT angio neck with con Stat CT head/brain wo con Stat 08/01/20 15:01 MR brain wo/w con Urgent 08/02/20 09:00 EP Lab Images for PACS ONCE XR chest 2V PA/lateral CLINICAL HISTORY: Post pacemaker study COMPARISON STUDY: 08/01/2020 FINDINGS: There is been interval placement of a left subclavian dual-chamber central venous pacemaker. There is no pneumothorax. Electrode position appears unremarkable. There is no failure. There is no focal pulmonary consolidation. There is calcified granuloma within the right midlung zone.[ IMPRESSION: No evidence of pneumothorax status post placement of a left subclav alyce dual-chamber central venous pacemaker ACT 112: Negative or not required by law. Electronically signed by: Deep Contreras M.D. 08/03/2020 7:25 AM Dictated: 08/03/20724 Transcribed: 08/03/20724 MRI OF THE BRAIN WITHOUT AND WITH IV CONTRAST CLINICAL HISTORY: vertigo, L eye visual changes COMPARISON STUDY: CT scan dated 08/01/2020 TECHNIQUE: MRI of the brain was performed from the vertex to the skull base utilizing various T1 and T2 weighted sequences. Following the IV administration of 11.5 mL of Gadavist contrast, additional enhanced images were obtained. FINDINGS: Sagittal T1, axial diffusion, proton density and T2 weighted axial, coronal FLAIR, and pre and post axial T1-weighted images were acquired. These were supplemented with post gadolinium coronal T1 weighted images. No intra or extra-axial mass lesions are visualized. Axial diffusion-weighted images reveal no evidence of acute or subacute infarction. There is no evidence of ventricular dilatation. Proton density T2-weighted and FLAIR images reveal minor foci of increased T2 signal within the white matter, likely on a small vessel basis. There are no abnormal flow voids. There is no evidence of pathologic enhancement. IMPRESSION: 1. No acute intracranial findings 2. No evidence of intracranial mass 3. No evidence of acute or subacute infarction. ACT 112: Negative or not required by law. Electronically signed by: Deep Contreras M.D. 08/01/2020 7:16 PM Dictated: 08/01/201914 Transcribed: 08/01/201914 CT angio neck with con CLINICAL HISTORY: Stroke evaluation LIGHTHEADEDNESS, DIZZINESS. COMPARISON STUDY: No previous studies for comparison. TECHNIQUE: CT angiography was performed from the aortic arch to the skull base. MIP imaging was performed. The patient was scanned in a dynamic helical fashion during intravenous administration of 120 cc of Optiray 320. A dose lowering technique was utilized adhering to the principles of ALARA. CT DOSE: Technique: CT angiogram of the carotid and vertebral arteries was obtained using intravenous contrast and 3-D reconstruction. NASCET criteria was utilized. Findings: The right carotid revealed no evidence of aneurysm and no evidence of dissection. There is no evidence of hemodynamic significant stenosis. There is calcific plaque at the level the left carotid bulb. There is no evidence of hemodynamically significant carotid stenosis. There is no evidence of hemodynamically significant vertebral stenosis. There is no evidence of vertebral dissection. IMPRESSION: No evidence of hemodynamically significant carotid or vertebral artery stenosis. No evidence of dissection. ACT 112: Negative or not required by law. Electronically signed by: Deep Contreras M.D. 08/01/2020 1:44 PM Dictated: 08/01/20 1342 Transcribed: 08/01/20 1342 HEAD CTA HISTORY: Dizziness. Stroke evaluation TECHNIQUE: Multiaxial CT images of the head were performed following the intravenous administration of contrast to evaluate the major cerebral vessels. Maximum intensity projection images were also obtained. A dose lowering technique was utilized adhering to the principles of ALARA. COMPARISON: None. FINDINGS: There is no mass, hematoma, midline shift, or acute infarct. Visualized intracranial internal carotid arteries, distal vertebral arteries, and basilar artery are widely patent. There is no significant stenosis, occlusion, or aneurysm seen within the bilateral ACAs, MCAs, or community organization worker. The major dural venous sinuses are widely patent. IMPRESSION: No significant stenosis, occlusion, or aneurysm within the tangirnaq of [place]ste[place]. ACT 112: Negative or not required by law. Electronically signed by: Tl Deluna M.D. 08/01/2020 2:00 PM Dictated: 08/01/20 1343 Transcribed: 08/01/[address] head/brain wo con CLINICAL HISTORY: Stroke evaluation DIZZINESS, LIGHTHEADEDNESS. COMPARISON STUDY: None TECHNIQUE: Axial CT of the brain is performed from the vertex to the skull base. IV contrast was not administered for this examination. A dose lowering technique was utilized adhering to the principles of ALARA. CT DOSE: FINDINGS: No intra or extra-axial mass lesions are visualized. There is no CT evidence of acute cortical infarction. There is no evidence of midline shift. There is no acute hemorrhage. No calvarial fractures are visualized. There are minimal white matter hypodensities likely on a small vessel basis. There is no evidence of pathologic ventricular dilatation. There is no evidence of acute sinusitis IMPRESSION: No acute intracranial findings ACT 112: Negative or not required by law. Electronically signed by: Deep Contreras M.D. 08/01/2020 1:42 PM Dictated: 08/01/20 1340 Transcribed: 08/01/20 1340 SINGLE VIEW CHEST CLINICAL HISTORY: Atypical chest pain. FINDINGS: 2 AP, portable, upright chest radiographs are compared to study dated 10/07/2017 and correlated with chest CT dated 07/15/2008. The examination is degraded by portable technique and patient rotation. The heart is top normal for projection noting mild atherosclerotic calcification of the thoracic aorta. A 10 mm pulmonary nodule in the right lower lobe is unchanged. There is no airspace consolidation or large pleural effusion. Atelectasis is noted at the left lung base. No pneumothorax is seen. The bony thorax is grossly intact. IMPRESSION: 1. No acute cardiopulmonary abnormality. 2. A 10 mm right lower lobe pulmonary nodule is similar in appearance to previous.. ACT 112: Negative or not required by law. Electronically signed by: Gonzalez Logan M.D. 08/01/2020 12:42 PM Dictated: 08/01/20 1240 Transcribed: 08/01/20 1240 Hospital Course (1) Pre-syncope: (2) Symptomatic bradycardia: Present on admission with dizziness and lightheadedness EKG with sinus bradycardia at 49. S/P dual-chamber pacemaker insertion performed by Dr. Vicente on 08/02 Echo showed left ventricular systolic function is normal. Left ventricular wall motion is normal. Ejection fraction 60 to 65%. CXR post pacemaker placement showed no evidence of pneumothorax status post placement of a left subclavian dual-chamber central venous pacemaker OK from cardiology standpoint to discharge home today Discussed with patient about restrictions after the pacemaker: Don't drive until your doctor says it's OK. Do not lift the left elbow over the left shoulder for 1 month Do not lift no more than 10 lbs for 1 week Do not stretch your arm behind your back for as long as directed by your doctor. Keep incision area clean and dry Check your incision area for signs of infection (redness, swelling, drainage, or warmth). Before you receive any treatment, tell all healthcare providers (including your dentist) that you have a pacemaker. Keep your cell phone away from your pacemaker. Don't carry the phone in your shirt pocket overlying the pacemaker, even when it's turned off. Avoid strong magnets If you order for an MRI in the future, please inform that you have a pacemaker (3) Dizziness: (4) Visual changes: Due to Symptomatic bradycardia R/o any CVA MRI brain showed no acute intracranial findings. No evidence of intracranial mass. No evidence of acute or subacute infarction. CTA head/neck showed no evidence of hemodynamically significant carotid or vertebral artery stenosis. No evidence of dissection. CT head showed no acute finding No focal neuro deficit on exam Clinically stable (5) Hypertension: BP stable Continue to hold losartan and hctz due to slight elevation in creatinine Continue monitor BP (6) CKD (chronic kidney disease), stage III: At baseline with creatinine ~1.4, creatinine 1.5 today Continue to hold HCTZ and Losartan Continue monitor BMP (7) BPH (benign prostatic hyperplasia): Current home regimen includes finasteride and doxazosin. Will resume on discharge Lung Nodule CXR showed a 10 mm right lower lobe pulmonary nodule is similar in appearance to previous. Stable DVT Ppx: SQ heparin Code status: FULL PCP: Kyleigh Dispo: Discharge home today Total Time Total Time Spent Total Time Spent (In Minutes): 35 minutes Total Time Includes: Examination of the Patient, Discharge Planning, Medication Reconciliation, Communication With Other Providers and Other Discharge Plan Discharge Items Patient Disposition: Home - Self-Care Reason For Visit: DIZZINESS Discharge Diagnosis: (1) Pre-syncope: (2) Symptomatic bradycardia: (3) Dizziness (5) Hypertension: (6) CKD (chronic kidney disease), stage III: (7) BPH (benign prostatic hyperplasia): Activity: As commented below Activity Comment: do not raise the left elbow over the left shoulder for 1 momth Lifting: No more than 10 pounds Lifting Comment: do not lift more than 10 pounds with the left arm for 2 weeks Bathing: Keep incision dry Bathing Comment: keep dressing on and dry until your wound check next week Non-emergency contact: Primary Care Provider and Cornice Maker Call non-emergency contact if: you have any medication questions, your symptoms worsen and your temperature is above 101 Follow-up/Referrals: Walter Arizmendi MD [Primary Care Provider] - 08/10/20 11:20 am (Date & Time 08/10/2020 11:20 AM Provider Walter Arizmendi MD [facility] ) Diet: Heart Healthy Add Attending Provider Instructions: Device and wound check at [facility], [place] next week 08/09 at 9:30am Follow up with your primary care provider Dr. Arizmendi on 08/10 @ 11:20AM Don't drive until your doctor says it's OK. OK to shower tomorrow Do not lift the left elbow over the left shoulder for 1 month Do not lift no more than 10 lbs for 1 week Do not stretch your arm behind your back for as long as directed by your doctor. Keep incision area clean and dry Check your incision area for signs of infection (redness, swelling, drainage, or warmth). Before you receive any treatment, tell all healthcare providers (including your dentist) that you have a pacemaker. Keep your cell phone away from your pacemaker. Don't carry the phone in your shirt pocket overlying the pacemaker, even when it's turned off. Avoid strong magnets If you order for an MRI in the future, please inform that you have a pacemaker Pending Studies at Discharge: No Stand-Alone Forms: My [facility], Smoking Cessation Medications and DC Order Prescriptions: Continued cyanocobalamin (vitamin B-12) 1,000 mcg Tablet 1,000 mcg PO DAILY RF: 0 aspirin [Aspir-81] 81 mg Tablet,Delayed Release (Dr/Ec) 81 mg PO DAILY RF: 0 doxazosin [Cardura] 8 mg tablet 8 mg PO DAILY RF: 0 metronidazole 0.75 % Lotion 1 applic TOPICAL DAILY PRN (Reason: ..) RF: 0 hydrochlorothiazide 25 mg tablet 25 mg PO DAILY RF: 0 losartan [Cozaar] 100 mg tablet 100 mg PO DAILY RF: 0 fluticasone propionate [Flonase Allergy Relief] 50 mcg/actuation spray,suspension 2 spray intranasal DAILY RF: 0 finasteride 5 mg tablet 5 mg PO DAILY RF: 0 Discharge Orders: Discharge Order (Routine); Ordered 08/03/20 Ordered By: Ivy Cortez/Other Patient Handouts: Diabetes: Meal Planning, A1C Admission Data Admit Date/Time: 08/01/20 14:25 Attending Provider: Ivy Bernard Admit Provider: Zackery Hazel Primary Care Provider: Walter Arizmendi Other Providers: Ramón Mcdonald ; Zackery Hazel ; Cheri Moore
--- NOTE | 2020-08-04 12:09 | Electrocardiogram Report ---
Test Reason : Blood Pressure : / mmHG Vent. Rate : 061 BPM Atrial Rate : 061 BPM P-R Int : 240 ms QRS Dur : 092 ms QT Int : 426 ms P-R-T Axes : 027 -17 048 degrees QTc Int : 428 ms Atrial-paced rhythm with prolonged AV conduction Abnormal ECG When compared with ECG of 01-AUG-2020 14:54, (unconfirmed) Electronic atrial pacemaker has replaced Sinus rhythm T wave inversion no longer evident in Inferior leads Confirmed by Dilan Jackson ([id number]) on 08/04/2020 12:08:38 PM Referred By: Walter Arizmendi Confirmed By:Dilan Jackson
== END 2020-08-03 14:58 | disposition home or self-care (01) | DRG 244 ==
LOC: ED 11:15 → SUATTDRO 14:25 → 2W 14:25 → 2S 08-02 10:56